=== PATIENT | male | born 1955 | race Caucasian/White ===

== ENCOUNTER 2024-09-17 13:40 | Outpatient (AMB) | payer MEDICARE, SELFPAY ==
--- NOTE | 2024-09-17 13:48 | A.OFFVIS_ITS ---
Vital Signs 09/17/24 13:50 Height 5 ft 11 in Weight 222 lb 10.67 oz BMI 31.1 BP 130/80 Blood Pressure Location Rt brachial Position Sitting Pulse 87 Pulse Source Pulse Oximeter Pulse Oximetry (%) 97 Oxygen Delivery Method Room Air Intake Visit Reasons: T2DM Intake Note: NEW Patient presents today to establish treatment for Type 2 Diabetes Mellitus: Last Diabetic eye exam was on: 03/2024, No Diabetic Retinopathy Last Podiatry exam was on: Patient does not see a Director Sales Training Most recent HbA1c: 6.3%, 08/20/2024 at PCP Random Glucose- 189 mg/dL, Today Set Up Worker Required: No Accompanied by: Self / Same As Patient Allergies No Known Allergies Allergy (Verified 09/17/24 13:54) Medication List - Last Reconciled 09/17/24 by JOANNA Freire atorvastatin 80 mg PO DAILY blood sugar diagnostic (FreeStyle Lite Strips) As directed to check glucose up to 2 times daily. blood-glucose meter (FreeStyle Lite Meter kit) as directed blood-glucose sensor (FreeStyle Peterson 3 Plus Sensor device) As directed to monitor blood glucose continuously. Change sensor every 15 days. glucose (Dex4 Glucose Quick Dissolve) 16 grams (4 x 4 gram) PO Q15M PRN lancets (FreeStyle Lancets) Use to monitor blood glucose twice daily. lisinopril 40 mg PO DAILY metformin ER 1,000 mg PO DAILY HPI Comments Details: This is a 69-year-old male with a past medical history of hypertension, hyperlipidemia nephrolithiasis and type 2 diabetes presenting for a new patient consult for diabetic management. He was diagnosed with prediabetes 15 years ago. This progress to type 2 diabetes. Highest a1c 8.3% last December. Reviewed Peterson 3 data CGM active 97% in the last 14 days Average glucose 133 G OR 6.5% Glucose variability 12.6% 1% hyperglycemia 99% target range The patient has no significant hyperglycemia. Patient reports he has been experiencing alerts to urgent lows from his sensor over the past couple of weeks. Some lows have been in the high 50s. He denies symptoms. He does not have a fingerstick glucometer to confirm this. He reset the sensor alert to less than 85 so now it is going off frequently and he is having orange juice which then causes hyperglycemia. Patient noticed that his weight had increased a bit when he went to his last appointment in primary care a few weeks ago so he decreased the carbohydrates in his diet. Patient went to [facility] on 08/26/2024. Patient says they told him his potassium was high and his kidney function had decreased. He brought lab results. Creatinine was 1.15, potassium 5.5, GFR 69. He was given fluids, and labs were repeated. Potassium normalized to 4, creatinine 1.02 and GFR 80. He was told this was due to dehydration. Hemoglobin a1c 6.3% 08/21/24. Current medications: Metformin ER 500 mg 2 tablets twice daily. He only took 1 tablet this morning, and yesterday he took 2 tablets due to hypoglycemia alerts recently. Previous medication: Jardiance discontinued due to no longer being needed/h ypoglycemia. Follows diabetic diet closely. He does not drink. He does not smoke. Walks 1/4 to 1/5 mile per day due to spinal issues. Previously walked a lot more. Hypoglycemia symptoms: None Hyperglycemia symptoms: None Eye exam: March 2024 Microvascular complications: Mild neuropathy in his feet Macrovascular complications: None Hypertension is treated with lisinopril 40 mg daily. Hyperlipidemia is treated with atorvastatin 80 mg daily. ROS: Constitutional: No unexplained weight loss, fever, chills, fatigue or night sweats. Eyes: No vision changes Respiratory: No shortness of breath Cardiovascular: No chest pain Gastrointestinal: No anorexia, nausea, vomiting or diarrhea. No abdominal pain Genitourinary: No dysuria, hematuria, urinary frequency. Neurologic: No dizziness, syncope, tremors, seizures. Intermittent tingling and burning pain in his toes. No numbness. No weakness. Endocrine: No cold or heat intolerance. No polyuria or polydipsia. Physical exam: Constitutional: Alert, in no distress. Neck: Supple, Full range of motion. No lymphadenopathy. No palpable thyroid masses. Respiratory: Clear to auscultation. Cardiovascular: S1 S2 regular. No murmurs. Right foot: Warm and well perfused. No clubbing, cyanosis or edema. Intact DP pulse. Decreased vibratory sensation. Intact sensation to monofilament. Left foot: Warm and well perfused. No clubbing, cyanosis or edema. Intact DP pulse. Decreased vibratory sensation. Intact sensation to monofilament. [facility] Medical History (Updated 09/17/24 @ 15:25 by JOANNA Freire) Controlled type 2 diabetes with neuropathy Surgical History (Updated 09/17/24 @ 13:57 by SUSANNE Laws) Hx of hemorrhoidectomy Hx of tonsillectomy History of appendectomy Family History (Updated 09/17/24 @ 13:55 by SUSANNE Laws) Father Family history of diabetes mellitus Mother Family history of diabetes mellitus Social History Alcohol intake: current Alcohol intake frequency: does not drink Patient Tobacco Use Status: Never used Tobacco Physical Exam Vital Signs: BMI result Body Mass Index 31.1 Office Procedures Glucose Monitoring Details Details: see [facility] [address] - Glucose monitoring, continuous-physician I&R Procedure code (CPT) selection complete Results Reviewed Results Reviewed: External lab report 08/21/2024: Urine creatinine 76.8 Urine albumin less than 3.0 Albumin/creatinine ratio less than 4 Platelets 247,000 Creatinine 0.88 GFR 94 AST 22 ALT 27 Hemoglobin A1c 6.3% Total cholesterol 100 Triglycerides 86 HDL 47 LDL 36 Vitamin B12 409 Fib 4 value 1.17 09/17/24 Assessment & Plan Assessment & Plan (1) Controlled type 2 diabetes with neuropathy: Code(s): E11.40 - Type 2 diabetes mellitus with diabetic neuropathy, unspecified Category: Medical Plan: In summary this is a 69-year-old male with controlled type 2 diabetes with neuropathy currently on metformin with concerns about fluctuating blood sugars per CGM. Discussed pathophysiology of Type II Diabetes Mellitus with the patient in detail.? 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 Discussed lifestyle modification with the patient. He would like to me with a dietitian. Referral placed. We discussed that CGM sometimes alerts to hypoglycemia inaccurately, and he needs to use a fingerstick glucometer to confirm episodes if he is asymptomatic. He may be having some lows due to decreasing carbohydrates in his diet recently to lose weight. I am going to switch him to the Peterson 3+ for more accuracy. I sent a freestyle glucometer and supplies to his pharmacy as well. Placed Peterson 3+ sensor on the patient, and he left with the jaz in warm up. Reduce Metformin extended release to 1000 mg total daily. If your fasting sugars in the morning are over 145 or if after meals blood sugars are over 180, increase to metformin 1000 mg in the morning and 500 mg at night. If your sensor alerts you to a low blood sugar and you have no symptoms, check a fingerstick. If blood sugar is <70 follow insructions for hypoglycemia below: If you experience low blood sugar, treat this by eating a chewable fruit candy like skittles or jelly beans (about 8 pieces), 4 ounces (1/2 cup) of fruit juice (not diet), 1 tablespoon of honey or 4 glucose tablets. If your blood sugar is under 55, take double the amount of one of the above. Recheck your blood sugar in 15 minutes. Follow up in 2 weeks for re-evaluation of type 2 diabetes. Orders: Orders AMB Glucose Monitoring Today E11.9 - Type 2 diabetes mellitus without complications Referrals Director Of Accounting Nutrition Referral E11.65 - Type 2 diabetes mellitus with hyperglycemia Medications: New blood-glucose meter (FreeStyle Lite Meter kit) as directed 1 ea 0RF E11.9 - Type 2 diabetes mellitus without complications blood-glucose sensor (FreeStyle Peterson 3 Plus Sensor device) As directed to monitor blood glucose continuously. Change sensor every 15 days. 2 ea 11RF lancets (FreeStyle Lancets) Use to monitor blood glucose twice daily. 100 ea 5RF blood sugar diagnostic (FreeStyle Lite Strips) As directed to check glucose up to 2 times daily. 100 ea 5RF glucose (Dex4 Glucose Quick Dissolve) until symptoms of low blood sugar are controlled 16 grams (4 x 4 gram) PO Q15M PRN 10 tabs 3RF hypoglycemia Patient Instructions: Reduce Metformin extended release to 1000 mg total daily. If your fasting sugars in the morning are over 145 or if after meals blood sugars are over 180, increas e to metformin 1000 mg in the morning and 500 mg at night. Switch to peterson plus sensor. If your sensor alerts you to a low blood sugar and you have no symptoms, check a fingerstick. If blood sugar is <70 follow insructions for hypoglycemia below: If you experience low blood sugar, treat this by eating a chewable fruit candy like skittles or jelly beans (about 8 pieces), 4 ounces (1/2 cup) of fruit juice (not diet), 1 tablespoon of honey or 4 glucose tablets. If your blood sugar is under 55, take double the amount of one of the above. Recheck your blood sugar in 15 minutes. Coding Level of Care Code New Pt Level 4 (92888) Diagnoses Controlled type 2 diabetes with neuropathy E11.40 CPT Codes Details - CPT: 02198 - Glucose monitoring, continuous-physician I&R ([id number])
[2024-09-17 13:50] VITALS: BP 130/80; PULSE 87; O2SAT 97; BMI 31.1
[2024-09-17 14:06] LABS: Glucose, Whole Blood 189 mg/dL (60-115)
--- OUTSIDE RECORDS SUMMARY | 2024-09-17 14:58 | XMS_ITS | Clinical Summary ---
Author Organization [facility] Address [address] [place] [address] Care Team Providers Care Egg Separator Name Role Phone Johnson ELAM MD, Balwinder Martin Primary Care Provider [phone] Allergies No known active allergies Medications Medication Sig Dispensed Refills Start Date End Date Status lisinopril (PRINIVIL,ZESTRIL) tablet 20 mg Take 20 mg by mouth daily. 1 05/30/2018 Active metFORMIN (GLUCOPHAGE-XR) ER 24 hr tablet 500 mg Take 500 mg by mouth 2 (two) times a day. 3 07/15/2018 Active pravastatin (PRAVACHOL) tablet 20 mg Take 20 mg by mouth daily. 3 07/15/2018 Active aspirin EC 81 MG tablet Take 81 mg by mouth. 0 Active Active Problems No known active problems Social History Tobacco Use Types Packs/Day Years Used Date Smoking Tobacco: Never Smokeless Tobacco: Never Alcohol Use Standard Drinks/Week Comments No 0 (1 standard drink = 0.6 oz pur e alcohol) Sex and Gender Information Value Date Recorded Sex Assigned at Not on file Gender Identity Not on file Sexual Orientation Not on file Last Filed Vital Signs Vital Sign Reading Time Taken Comments Blood Pressure - - Pulse - - Temperature - - Respiratory Rate - - Oxygen Saturation - - Inhaled Oxygen Concentration - - Weight 108.4 kg (239 lb) 09/10/2018 9:49 AM EDT Height 180.3 cm (5' 11 ) 09/10/2018 9:49 AM EDT Body Mass Index 33.33 09/10/2018 9:49 AM EDT Plan of Treatment Health Maintenance Due Date Last Done Comments Hepatitis C Screening 1955 COVID-19 Vaccine (#1) 1956 Pneumococcal Vaccine (1 of 2 - PCV) 1962 Depression Screening 1968 Preventative Health Evaluation 1974 DTap / Tdap / Td (1 - Tdap) 1975 Colon Cancer Screening (Colonoscopy) 2001 Shingrix-Zoster Vaccine (1 of 2) 2006 Fall Risk Assessment 2021 Influenza Vaccine (#1) 2024 RSV Adult > 60+ Yrs or Pregn ant (1 - 1-dose 75+ series) 2031 Hepatitis B Vaccines Aged Out No long er eligible based on patient's age to complete this topic RSV Ped < 20 months Aged Out No longe r eligible based on patient's age to complete this topic Insurance Payer Benefit Plan / Group Subscriber ID Effective Dates Phone Address [facility] [id number] 2018-Buddy [address] [place] [id number] O Care Teams Egg Separator Relationship Specialty Start Date End Date Balwinder Ornelas II, MD [address] [place] [address] PCP - General Internal Medicine 09/12/17
== END 2024-09-17 14:53 | disposition home or self-care (01) ==
LOC: HO.ENCR 13:40
PROVIDERS: PCP Internal Medicine; Visit Provider Physician Assistant Medical
DX: E11.40 Type 2 diabetes mellitus with diabetic neuropathy, unspecified (principal)

== ENCOUNTER → 2024-09-17 13:40 | Outpatient (BNVA) | payer MEDICARE, SELFPAY | PROVIDERS: PCP Internal Medicine; Visit Provider Physician Assistant Medical | DX: E11.40 Type 2 diabetes mellitus with diabetic neuropathy, unspecified (principal); Z79.84 Long term (current) use of oral hypoglycemic drugs | CPT/HCPCS: 82947; 99202 ==

== ENCOUNTER 2024-10-01 13:20 | Outpatient (AMB) | payer MEDICARE, SELFPAY ==
--- NOTE | 2024-10-01 13:26 | MHC.OFFVIS ---
Vital Signs 10/01/24 13:30 Height 5 ft 11 in Weight 228 lb 9.91 oz BMI 31.9 BP 118/74 Blood Pressure Location Rt brachial Position Sitting Pulse 91 Pulse Source Pulse Oximeter Pulse Oximetry (%) 95 Oxygen Delivery Method Room Air Intake Visit Reasons: T2DM Intake Note: Patient presents today to establish treatment for Type 2 Diabetes Mellitus: Last Diabetic eye exam was on: 03/2024 Last Podiatry exam was on: Patient does not see a Director Digital Catalogue Most recent HbA1c: 6.3%, 08/20/2024 at PCP Random Glucose- 153 mg/dL, Today Vice President Risk Management Required: No Accompanied by: Self / Same As Patient Allergies No Known Allergies Allergy (Verified 10/01/24 13:31) HPI Comments Details: This is a 69-year-old male with a past medical history of hypertension, hyperlipidemia nephrolithiasis and type 2 diabetes presenting for diabetic management. He was diagnosed with prediabetes 15 years ago. This progress to type 2 diabetes. Highest a1c 8.3% last December. Reviewed [employer] Lisa report CGM active 97% Average glucose 144 G WA 6.8% Glucose variability 11% Very high 0% High 2% Target range 98% 0% hypoglycemia Patient's blood sugars are within the target range. Patient reports he has not had anymore episodes of hypoglycemia or alerts to urgent lows on his sensor. Hemoglobin a1c 6.3% 08/21/24. Current medications: Metformin ER 500 mg twice daily reduced from a 1000 mg twice daily. Previous medication: Jardiance discontinued due to no longer being needed/hypoglycemia. Follows diabetic diet closely. He does not drink. He does not smoke. Walks 1/4 to 1/5 mile per day due to spinal issues. Previously walked a lot more. He has a consult with Neurosurgery at [facility] for his back. Hypoglycemia symptoms: None Hyperglycemia symptoms: None Eye exam: March 2024 Microvascular complications: Mild neuropathy in his feet Macrovascular complications: None Hypertension is treated with lisinopril 40 mg daily. Hyperlipidemia is treated with atorvastatin 80 mg daily. ROS: Constitutional: No unexplained weight loss, fever, chills, fatigue or night sweats. Eyes: No vision changes Respiratory: No shortness of breath Cardiovascular: No chest pain Neurologic: No dizziness, syncope, tremors, seizures. Intermittent tingling and burning pain in his toes. No numbness. No weakness. Endocrine: No cold or heat intolerance. No polyuria or polydipsia. Physical exam: Constitutional: Alert, in no distress. Neck: Supple, Full range of motion. No lymphadenopathy. No palpable thyroid masses. Respiratory: Clear to auscultation. Cardiovascular: S1 S2 regular. No murmurs. [facility] Medical History (Updated 09/17/24 @ 15:25 by JOANNA Freire) Controlled type 2 diabetes with neuropathy Surgical History Hx of hemorrhoidectomy Hx of tonsillectomy History of appendectomy Family History Father Family history of diabetes mellitus Mother Family history of diabetes mellitus Social History Alcohol intake: current Alcohol intake frequency: does not drink Patient Tobacco Use Status: Never used Tobacco Physical Exam Vital Signs: Last Vital Signs Pulse 91 10/01/24 13:30 BP 118/74 10/01/24 13:30 Pulse Ox 95 10/01/24 13:30 Oxygen Delivery Method Room Air 10/01/24 13:30 BMI result Body Mass Index 31.9 Office Procedures Glucose Monitoring Details Details: See [facility] [address] - Glucose monitoring, continuous-physician I&R Procedure code (CPT) selection complete Results Reviewed Results Reviewed: External lab report 08/21/2024: Urine creatinine 76.8 Urine albumin less than 3.0 Albumin/creatinine ratio less than 4 Platelets 247,000 Creatinine 0.88 GFR 94 AST 22 ALT 27 Hemoglobin A1c 6.3% Total cholesterol 100 Triglycerides 86 HDL 47 LDL 36 Vitamin B12 409 Fib 4 value 1.17 09/17/24 Assessment & Plan Assessment & Plan (1) Controlled type 2 diabetes with neuropathy: Code(s): E11.40 - Type 2 diabetes mellitus with diabetic neuropathy, unspecified Category: Medical Plan: In summary this is a 69-year-old male with controlled type 2 diabetes with neuropathy currently on metformin with concerns about fluctuating blood sugars per CGM. Discussed pathophysiology of Type II Diabetes Mellitus with the patient in detail.? 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 Discussed lifestyle modifications with the patient. He has an upcoming appointment with the dietitian. He has been following the diabetic diet strictly. We discussed that if he does incorporate some healthy carbohydrate options he may see an increase in his GMI and blood sugar, and if hisG WA is not under 7% he can increase metformin to 1000 mg in the morning and 500 mg in the evening. He plans to continue 500 mg twice daily for now unless he sees this increase. If your sensor alerts you to a low blood sugar and you have no symptoms, check a fingerstick. If blood sugar is <70 follow instructions for hypoglycemia. If you experience low blood sugar, treat this by eating a chewable fruit candy like skittles or jelly beans (about 8 pieces), 4 ounces (1/2 cup) of fruit juice (not diet), 1 tablespoon of honey or 4 glucose tablets. If your blood sugar is under 55, take double the amount of one of the above. Recheck your blood sugar in 15 minutes. Follow up in 2 months for type 2 diabetes. Orders: Orders AMB Glucose Monitoring Today E11.9 - Type 2 diabetes mellitus without complications Coding Level of Care Code Est Pt Level 4 (08762) Diagnoses Controlled type 2 diabetes with neuropathy E11.40 CPT Codes Details - CPT: 20773 - Glucose monitoring, continuous-physician I&R ([id number])
[2024-10-01 13:30] VITALS: BP 118/74; PULSE 91; O2SAT 95; BMI 31.9
[2024-10-01 13:39] LABS: Glucose, Whole Blood 153 mg/dL (60-115)
--- OUTSIDE RECORDS SUMMARY | 2024-10-01 14:28 | XMS_ITS | Clinical Summary ---
Author Organization [facility] Address [address] [place], [place] [id number] Care Team Providers Care Tread Builder Name Role Phone Johnson ELAM MD, Balwinder Martin Primary Care Provider [phone] Allergies No known active allergies Medications Medication [...] Group Subscriber ID Effective Dates Phone Address [facility] [id number] 2018-Buddy [address] [place] [id number] O Care Teams Tread Builder Relationship Specialty Start Date End Date Balwinder Ornelas II, MD [address] [place] [address] PCP - General Internal Medicine 09/12/17
--- OUTSIDE RECORDS SUMMARY | 2024-10-01 14:28 | XMS_ITS | Data Portability ---
Author Organization [place] - [facility], Allergy Address [address] [place] [phone] Care Team Providers Care Redevelopment Specialist Name Role Phone TYLER NGUYEN Primary Care Provider Assessment Encounter Date Assessment Date Assessment LastModified by Organization Details LastModified Time 12/06/2023 12/06/2023 Impacted cerumen was debrided bilaterally today. He will follow up in three months. [email or web address] Not available 12/06/2023 09:13:22 04/05/2024 04/05/2024 69 year old male presents for ear cleaning. Ears were meticulously cleaned bilaterally today with fine pics and suction. Patient is encouraged to avoid Q-tips in his ears relative to packing the wax in tighter. He will follow up in 3 months. He requests to follow up in early June when [place] [email or web address] Not available 04/05/2024 11:55:06 06/21/2024 06/21/2024 69 year old male presents for ear cleaning. Ears were meticulously cleaned bilaterally today with fine pics and suction. Patient is encouraged to avoid Q-tips in his ears relative to packing the wax in tighter. He will follow up in 3 months when he returns from [place], [place] for the season. Not available 06/21/2024 08:15:24 09/20/2024 09/20/2024 Bilateral cerumen impactions were debrided using suction. TMs intact and middle ear spaces appear well aerated. His voice is of normal quality this morning. I have recommended an oral antihistamine such as Zyrtec, Claritin, or Estrella daily. He will follow up in 3 months for ear cleaning. If he continues to have voice concerns at that time he may benefit from fiberoptic laryngoscopy. Not available 09/20/2024 08:37:38 Plan of Treatment Reminders Order Date Submit Date Provider Last Modified By Organization Details Last Modified Time Details Appointments Establish ed 15 2024 02:00P M NOAH WASHINGTON PA-C Not available Not available Not available Lab None recorded. Referral None recorded. Procedures None recorded. Surgeries None recorded. Imaging None recorded. Medication Orders None recorded. Patient TargetsNo targets recorded. Patient InstructionsNo instructions recorded. Reason for Referral None Reported. Results Created Date Observation Date Name Description Value Unit Range Abnormal Flag Note LastModifiedBy Organization Detail LastModifiedTime 01/04/20 24 05/24/2019 imagi ng/di kendalos tic resul t No observ ation record ed. [email or web address] Not Available 19:35:24 Result Notes None recorded. Problems Name Problem SNOMED Code Status Onset Date Resolution Date Notes Provider Name and Address Organization Details Recorded Time Abnormal auditory perceptio n 72533796 Active 2019 Other abnormal auditory perceptio ns, right ear; Note: Changed from H93.293 to H93.291 ( 0 1:01 PM) , Date Diagnosed : 05/27/2019 1:00 PM (H93.293) Not Available [facility] 4 02:51:52 Impacted cerumen of bilateral ears 95709216612 18014 Active 2019 Impacted cerumen, bilateral ; Note: Date Diagnosed : 09/23/2019 1:57 PM (H61.23) Not Available [facility] 4 02:51:53 Pain of right temporoma ndibular joint 41822660040 699736 Active 2019 Arthralgi a of right temporoma ndibular joint; Note: Changed from M26.62 to M26.621 ( 0 12:59 PM) , Date Diagnosed : 05/24/2019 4:08 PM (M26.62) Not Available [facility] 4 02:51:54 Hoarse 36549678 Active 2024 FREEMAN ORTIZ PA-C [address] [place] [address], [place], [phone] , [facility] - [facility] 5 08:36:57 Problem Notes None recorded. Procedures Surgical History Date Name Laterality Status Provider Name and Address Organization Details Recorded Time 5 Cerumen removal without microscope bilat completed FREEMAN ORTIZ PA-C [address] [facility],[place] [address], [place], [address], [place] - [facility] 09/20/2024 08:35:34 5 Cerumen removal without microscope bilat completed FREEMAN ORTIZ PA-C [address] [facility],[address], [place], [address], [place] - [facility] 06/21/2024 08:14:49 4 Cerumen removal without microscope bilat completed FREEMAN ORTIZ PA-C [address] [facility],[place] [address], [place], [address], [facility] - [facility] 04/05/2024 11:38:50 Imaging Results Imaging Date Name Status LastModified by [employer] [facility] Details LastModified Time 05/24/2019 imaging/diag nostic result completed [email or web address] Information not available 01/04/2024 19:35:24 Procedure Notes None recorded. Medical Equipment None Reported. Allergies No known drug allergies Medications Name Sig Start Date Stop Date Status Note LastModified by Organization Details LastModified Time atorvasta tin 80 mg tablet TAKE 1 TABLET BY MOUTH EVERY DAY FOR 90 DAYS active Not Available Not Available No t Available prednison e 10 mg tablet Take 4 tablet by mouth once a day 03/06 completed Medicati on ID: [id number] D uration Value: 5 Brand Name: predniso ne Send Method: E-Prescr ibed Sub s Allowed: subs OK Medic ationGen ericName : predniso ne Not Available Not Available Not Available meloxicam 15 mg tablet TAKE 1 TABLET BY MOUTH EVERY DAY 09/20 completed Not Available Not Available Not Available FreeStyle Lancets 28 gauge 08/25 completed Medicati on ID: [id number] B rand Name: FreeStyl e Lancets Send Method: E-Prescr ibed Sub s Allowed: subs OK Medic ationGen ericName : FreeStyl e Lancets Not Available Not Available Not Available lisinopri l 20 mg tablet TAKE 1 TABLET BY MOUTH EVERY DAY FOR 30 DAYS active Not Available Not Available No t Available tamsulosi n 0.4 mg capsule 08/25 completed Medicati on ID: [id number] B rand Name: tamsulos in Send Method: E-Prescr ibed Sub s Allowed: subs OK Medic ationGen ericName : tamsulos in Not Available Not Available Not Available gabapenti n 300 mg capsule TAKE 1-2 CAPSULE BY MOUTH THREE TIMES A DAY 06/21 completed Not Available Not Available Not Available pravastat in 20 mg tablet 03/06 completed Medicati on ID: [id number] D uration Value: 90 Brand Name: pravasta tin Send Method: E-Prescr ibed Sub s Allowed: subs OK Speci al Instruct ion: TAKE 1 TABLET BY MOUTH EVERY DAY Medi cationGe nericNam e: pravasta tin Not Available Not Available Not Available gabapenti n 100 mg capsule 06/21 completed Medicati on ID: [id number] B rand Name: gabapent in Send Method: E-Prescr ibed Sub s Allowed: subs OK Medic ationGen ericName : gabapent in Not Available Not Available Not Available metformin ER 500 mg tablet,ex tended release 24 hr 1 TABLET WITH EVENING MEAL ORALLY 4 TIMES DAILY 90 DAYS active Not Available Not Available No t Available tobramyci n 0.3 %-dexamet hasone 0.1 % eye drops,juana pension PLACE ONE DROP IN THE LEFT EYE THREE TIMES A DAY FOR FIVE DAYS THEN STOP 06/21 completed Not Available Not Available Not Available Kami Aspirin 06/21 completed Medicati on ID: [id number] B rand Name: kami aspirin Send Method: E-Prescr ibed Sub s Allowed: subs OK Medic ationGen ericName : kami aspirin Not Available Not Available Not Available FreeStyle Lite Meter kit 2020 active Medicati on ID: [id number] B rand Name: FreeStyl e Lite Meter Se nd Method: E-Prescr ibed Sub s Allowed: subs OK Speci al Instruct ion: CHECK BLOOD SUGARS ONCE A DAY DX DM TYPE2 E11.9 Me dication GenericN sam: FreeStyl e Lite Meter Not Available Not Available Not Available FreeStyle Lite Strips 08/25 completed Medicati on ID: [id number] B rand Name: FreeStyl e Lite Strips S end Method: E-Prescr ibed Sub s Allowed: subs OK Speci al Instruct ion: CHECK BLOOD SUGARS ONCE A DAY DX DM TYPE2 E11.9 Me dication GenericN sam: FreeStyl e Lite Strips Not Available Not Available Not Available Jardiance 10 mg tablet TAKE 1 TABLET BY MOUTH EVERY DAY 09/20 completed Not Available Not Available Not Available Sutab 1.479-0.1 88-0.225 gram tablet PLEASE SEE ATTACHED FOR DETAILED DIRECTIO NS 06/21 completed Not Available Not Available Not Available FreeStyle Lisa 3 [place] active Not Available Not Available Not Available FreeStyle Lisa 3 Plus Sensor device DIRECTED CHANGE EVERY 14 DAYS 28 active Not Available Not Available No t Available Vitals Date Recorded Body height Body mass index (BMI) Body weight Provider Name and Address Organization Details Last Updated DateTime 09/20/2024 180.34 cm 30.7 kg/m2 69139.32 g Shae Jameson [place] - [facility] 09/20/2024 08:06:42 Date Recorded Body height Body mass index (BMI) Body weight Provider Name and Address Organization Details Last Updated DateTime 12/06/2023 180.34 cm 32.8 kg/m2 092390.21 g Josefina Lema [place] - [facility] 12/06/2023 09:07:55 Date Recorded Body height Body mass index (BMI) Body weight Provider Name and Address Organization Details Last Updated DateTime 04/05/2024 180.34 cm 32.8 kg/m2 932786.21 g Shae Jameson [facility] 04/05/2024 11:26:23 Date Recorded Body height Body mass index (BMI) Body weight Provider Name and Address Organization Details Last Updated DateTime 06/21/2024 180.34 cm 30.7 kg/m2 93562.32 g Christine Mccrary [place] - [facility] 06/21/2024 07:56:01 Social History None recorded. Functional Status None recorded. Mental Status None recorded. Family History Nothing Reported. Medical History No medical history recorded. Past Encounters Encounter ID Performer Location Encounter Start Date Encounter Closed Date Diagnosis/Indication Diagnosis SNOMED-CT Code Diagnosis ICD10 Code Diagnosis Note [id number] MARY KRISHNAN PA-C [facility] [address] [place] [address], [place] [address] 12/06/2023 08:56:13 12/06/2023 09:17:11 Impacted cerumen of bilateral ears 3157575179 599349 H61.23 [id number] FREEMAN ORTIZ PA-C [facility] [address] [place] [address], [place] [address] 04/05/2024 11:18:09 04/05/2024 11:38:18 Impacted cerumen of bilateral ears 5348430531 738309 H61.23 [id number] FREEMAN ORTIZ PA-C [facility] [address] [place] [address], [place] [address] 06/21/2024 07:46:34 06/21/2024 08:14:12 Impacted cerumen of bilateral ears 6017436950 584649 H61.23 [id number] FREEMAN ORTIZ PA-C [facility] [address] [place] [address], [place] [address] 09/20/2024 07:59:07 09/20/2024 08:36:39 Impacted cerumen of bilateral ears 0810429679 647496 H61.23 Hoarse 00213644 R49.0 Health Concerns Section Related Observation LastModified by Organization Detai ls LastModified Time None Recorded Concern Status LastModified by Organization Details LastModified Time None Recorded Advance Directives Directive None Recorded Payers Insurance Date Sequence Insurance Name Policy Number Policy Galvez Covered Member ID Galvez Member ID Guarantor Name 09/20/2024 1 [facility]: MEDICARE PPO BLUE (MEDICARE REPLACEMENT PPO) [id number] Darrick Gil [id number] Darrick Gil Notes Date Note Type Note Provider Name and Address Organization Details Recorded Time 12/06/2023 text/html 68 year old male presents today for cerumen removal.No concerns today. Mary franks [place] - [facility] 12/06/2023 09:13:40 04/05/2024 text/html 69 year old male presents for ear cleaning. No concerns. KEYA COLBERT MD [address], [address], [facility] 04/08/2024 08:27:13 06/21/2024 text/html 69 year old male presents for ear cleaning. No concerns. KEYA COLBERT MD [address], [address], [facility] 06/21/2024 09:10:42 09/20/2024 text/html 69 year old male presents to the office for routine 3 month ear cleaning. No ear concerns. He does note he has been losing his voice over the past couple of weeks. No recent upper respiratory infection. He attributes it to seasonal allergies. He is not currently taking any oral antihistamine. He is a nonsmoker. KEYA COLBERT MD [address], [address], [facility] 09/20/2024 13:00:42
== END 2024-10-01 14:35 | disposition home or self-care (01) ==
LOC: HO.ENCR 13:21
PROVIDERS: PCP Internal Medicine; Visit Provider Physician Assistant Medical
DX: E11.40 Type 2 diabetes mellitus with diabetic neuropathy, unspecified (principal)

== ENCOUNTER → 2024-10-01 13:20 | Outpatient (BNVA) | payer MEDICARE, SELFPAY | PROVIDERS: PCP Internal Medicine; Visit Provider Physician Assistant Medical | DX: E11.40 Type 2 diabetes mellitus with diabetic neuropathy, unspecified (principal); Z79.84 Long term (current) use of oral hypoglycemic drugs | CPT/HCPCS: 82947; 99212 ==

== ENCOUNTER 2024-10-29 09:17 | Outpatient (AMB) | payer BC, SELFPAY ==
--- NOTE | 2024-10-29 09:28 | A.OFFVIS_ITS ---
VS Expanded 10/29/24 09:29 10/29/24 09:35 10/29/24 09:46 Height 5 ft 11 in 5 ft 11 in 5 ft 11 in Weight 225 lb 12.054 oz 226 lb 226 lb BMI 31.5 31.5 31.5 Intake Visit Reasons: T2DM Allergies No Known Allergies Allergy (Verified 10/01/24 13:31) Nutrition Presentation Details: Pt presents for MNT for T2DM Pt reports tis is his current meal pattern, working on reducing bread B: 2 eggs and water , vitamin zero L: salad with olive oil , no protein /no dairy /no fruits water or vitamin zero Dinner: 4-6 oz meatloaf with vegetables and green beans, water snack :baked potato chips may need spinal surgery Pt reports gradually working on weight loss, reports he was 360 lbs in 1999 , and was 280 lbs 2 yrs ago food frequency fruits: 1/d ve/d diary: 0-2/d starches 20 /d fish: 0/wk beverages: vitamin water , water, low sugar beverages PA: limited/sedentary, reports may need back surgery etoh/smoking: -- YPL-Jobknzr-Sw.Jeor Equation Height: 5 ft 11 in Weight: 226 lb Resting Metabolic Rate: 1821.66 Calculated Activity Level: Sedentary Calories Needed to Maintain Weight: 2185.99 Diagnosis Nutrition problem #1: overweight/obesity and food nutri know defi As related to (etiology) #1: diagnosis As evidenced by (sign/symptom) #1: food recall (meal balance:protein/veg/fruit) Monitoring/Goals Nutrition problem monitoring: weight (prot/fruit/veg /whole grain- healthy plate method) Outcome progress: verbalized understanding Learning/Education Readiness to learn: good [facility] Medical History (Updated 09/17/24 @ 15:25 by JOANNA Freire) Controlled type 2 diabetes with neuropathy Surgical History Hx of hemorrhoidectomy Hx of tonsillectomy History of appendectomy Family History Father Family history of diabetes mellitus Mother Family history of diabetes mellitus Social History Alcohol intake: current Alcohol intake frequency: does not drink Patient Tobacco Use Status: Never used Tobacco Assessment & Plan Assessment & Plan (1) Controlled type 2 diabetes with neuropathy: Code(s): E11.40 - Type 2 diabetes mellitus with diabetic neuropathy, unspecified Category: Medical Plan: Wt: 103 Kg ( 11/06 ) Est kcal needs as per MSJ: 2200 (40% carb, 30% protein/fat) Est fluid needs as per 25-30 ml/d: 3100 Est prot per day as per 1 g/kg bw: 100 Recommend fiber intake : 8-10 g per day and gradually increase to 25-28 g per day for women and 35-38 g for men or as tolerated Recommend sodium intake per day : less than 2300 mg Educated patient on: ( R = reviewed V = verbalizes understanding N/R = needs review N/A = not applicable * Food sources of carbohydrate, adequate serving sizes and its role in various health conditions: R V N/R * Differences between complex carbohydrates a simple carbohydrates, role of fiber in diet: R * Lean protein sources of foods: R V * Differences between types of fats and role in diet (mono on saturated fat fatty acids, saturated fatty acids, trans fats): R V N/R * Food sources of sodium in salt and healthy modifications for heart health in kidney health: R V R/V * Vitamins and minerals: R V N/R * Healthy plate method concept: R * Physical activity: Benefits a precaution: R V N/R Patient Instructions: Work on balancing meals while reducing total calories (from fats/highly processed foods/empty calories) add a fruit at breakfast in place of bread with eggs and turkey sausage Add at least 4 oz of protein to your salad at lunch (choose eggs or fish or poultry) Coding Level of Care Code Nutr Indiv Intake (54392) Diagnoses Controlled type 2 diabetes with neuropathy E11.40 Time Spent (min) 30
[2024-10-29 09:29] VITALS: BMI 31.5
[2024-10-29 09:46] VITALS: BMI 31.5
--- OUTSIDE RECORDS SUMMARY | 2024-10-29 09:57 | XMS_ITS | Data Portability ---
Author Organization [place] - [facility], Allergy Address [address] [place] [id number] Care Team Providers Care Electro Optical Engineer Name Role Phone TYLER NGUYEN Primary Care [...] in 3 months when he returns from [place], [place] for the season. Not available 06/21/2024 [...] Details Recorded Time Abnormal auditory perceptio n [id number] Active 2019 Other abnormal auditory perceptio ns, right ear; Note: Changed from H93.293 to H93.291 ( 0 1:01 PM) , Date Diagnosed : 05/27/2019 1:00 PM (H93.293) Not Available [facility] 4 02:51:52 Impacted cerumen of bilateral ears 91352251800 51909 Active 2019 Impacted cerumen, bilateral ; Note: Date Diagnosed : 09/23/2019 1:57 PM (H61.23) Not Available [facility] 4 02:51:53 Pain of right temporoma ndibular joint 93993664995 926281 Active 2019 Arthralgi a of right temporoma ndibular joint; Note: Changed from M26.62 to M26.621 ( 0 12:59 PM) , Date Diagnosed : 05/24/2019 4:08 PM (M26.62) Not Available [facility] 4 02:51:54 Hoarse 93466135 Active 2024 FREEMAN ORTIZ PA-C [address] [place] [address], [place], [address] , [facility] - [facility] 5 08:36:57 Problem Notes None recorded. Procedures Surgical History Date Name Laterality Status Provider Name and Address Organization Details Recorded Time 5 Cerumen removal without microscope bilat completed FREEMAN ORTIZ PA-C [address] [place] [facility], [place], [address], [place] - [facility] 09/20/2024 08:35:34 5 Cerumen removal without microscope bilat completed FREEMAN ORTIZ PA-C [address] [facility],[address], [place], [address], [place] - [facility] 06/21/2024 08:14:49 4 Cerumen removal without microscope bilat completed FREEMAN ORTIZ PA-C [address] [facility],[place] [address], [place], [address], [facility] - [facility] 04/05/2024 11:38:50 Imaging Results None recorded. Procedure Notes None recorded. Medical Equipment None [...] a day 03/06 completed Medicati on ID: [id number] D uration Value: 5 Brand Name: predniso ne Send Method: E-Prescr ibed Sub s Allowed: subs OK Medic ationGen ericName : predniso ne Not Available Not Available Not Available meloxicam 15 mg tablet TAKE 1 TABLET BY MOUTH EVERY DAY 09/20 completed Not Available Not Available Not Available FreeStyle Lancets 28 gauge 08/25 completed Medicati on ID: [id number] B rand Name: FreeStyl e Lancets Send Method: E-Prescr ibed Sub s Allowed: subs OK Medic ationGen ericName : FreeStyl e Lancets Not Available Not Available Not Available lisinopri l 20 mg tablet TAKE 1 TABLET BY MOUTH EVERY DAY FOR 30 DAYS active Not Available Not Available No t Available tamsulosi n 0.4 mg capsule 08/25 completed Medicati on ID: [id number] B rand Name: tamsulos in Send Method: E-Prescr ibed Sub s Allowed: subs OK Medic ationGen ericName : tamsulos in Not Available Not Available Not Available gabapenti n 300 mg capsule TAKE 1-2 CAPSULE BY MOUTH THREE TIMES A DAY 06/21 completed Not Available Not Available Not Available pravastat in 20 mg tablet 03/06 completed Medicati on ID: [id number] D uration Value: 90 Brand Name: pravasta tin Send Method: E-Prescr ibed Sub s Allowed: subs OK Speci al Instruct ion: TAKE 1 TABLET BY MOUTH EVERY DAY Medi cationGe nericNam e: pravasta tin Not Available Not Available Not Available gabapenti n 100 mg capsule 06/21 completed Medicati on ID: [id number] B rand Name: gabapent in Send Method: [...] Kami Aspirin 06/21 completed Medicati on ID: [id number] B rand Name: kami aspirin Send Method: E-Prescr ibed Sub s Allowed: subs OK Medic ationGen ericName : kami aspirin Not Available Not Available Not Available FreeStyle Lite Meter kit 2020 active Medicati on ID: [id number] B rand Name: FreeStyl e Lite Meter Se nd Method: E-Prescr ibed Sub s Allowed: subs OK Speci al Instruct ion: CHECK BLOOD SUGARS ONCE A DAY DX DM TYPE2 E11.9 Me dication GenericN sam: FreeStyl e Lite Meter Not Available Not Available Not Available FreeStyle Lite Strips 08/25 completed Medicati on ID: [id number] B rand Name: FreeStyl e Lite Strips [...] Not Available Not Available FreeStyle Lisa 3 [place] active Not Available Not Available Not Available FreeStyle Lisa 3 Plus Sensor device DIRECTED CHANGE EVERY 14 DAYS 28 active Not Available Not Available No t Available Vitals Date Recorded Body height Body mass index (BMI) Body weight Provider Name and Address Organization Details Last Updated DateTime 06/21/2024 180.34 cm 30.7 kg/m2 13453.32 g Christine Mccrary [place] - [facility] 06/21/2024 07:56:01 Date Recorded Body height Body mass index (BMI) Body weight Provider Name and Address Organization Details Last Updated DateTime 09/20/2024 180.34 cm 30.7 kg/m2 78228.32 g Shae Jameson [place] - [facility] 09/20/2024 08:06:42 Date Recorded Body height Body mass index (BMI) Body weight Provider Name and Address Organization Details Last Updated DateTime 12/06/2023 180.34 cm 32.8 kg/m2 532475.21 g Josefina Lema [place] - [facility] 12/06/2023 09:07:55 Date Recorded Body height Body mass index (BMI) Body weight Provider Name and Address Organization Details Last Updated DateTime 04/05/2024 180.34 cm 32.8 kg/m2 491547.21 g Shae Jameson [place] - [facility] 04/05/2024 11:26:23 Social History None recorded. Functional Status None recorded. Mental Status None recorded. Family History Nothing Reported. Medical History No medical history recorded. Past Encounters Encounter ID Performer Location Encounter Start Date Encounter Closed Date Diagnosis/Indication Diagnosis SNOMED-CT Code Diagnosis ICD10 Code Diagnosis Note [id number] MARY KRISHNAN PA-C [facility] on [address] [place] [address] [place] [address] 12/06/2023 08:56:13 12/06/2023 09:17:11 Impacted cerumen of bilateral ears [id number] 769718 H61.23 [id number] FREEMAN ORTIZ PA-C [facility] on [address] [place] [address] [place] [address] 04/05/2024 11:18:09 04/05/2024 11:38:18 Impacted cerumen of bilateral ears 1060298134 275540 H61.23 [id number] FREEMAN ORTIZ PA-C [facility] on [address] [place] [address] [place] [address] 06/21/2024 07:46:34 06/21/2024 08:14:12 Impacted cerumen of bilateral ears 2722465574 196147 H61.23 [id number] FREEMAN ORTIZ PA-C [facility] on [address] [place] [address] [place] [address] 09/20/2024 07:59:07 09/20/2024 08:36:39 Impacted cerumen of bilateral ears 6077235512 921537 H61.23 Hoarse 66581335 R49.0 Health Concerns Section Related Observation LastModified by Organization Detai ls LastModified Time None Recorded Concern Status LastModified by Organization Details LastModified Time None Recorded Advance Directives Directive None Recorded Payers Insurance Date Sequence Insurance Name Policy Number Policy Galvez Covered Member ID Galvez Member ID Guarantor Name 09/20/2024 1 [facility]IC[place] P[place] BLUE (MEDICARE REPLACEMENT PPO) [id number] Darrick Gil [id number] Darrick Gil Notes Date Note Type Note Provider Name and Address Organization Details Recorded Time 12/06/2023 text/html 68 year old male presents today for cerumen removal.No concerns today. Mary franks [place] - [facility] 12/06/2023 09:13:40 04/05/2024 text/html 69 year old male presents for ear cleaning. No concerns. KEYA COLBERT MD [address] [place] [address], [place], [address], [place] - [facility] [place] 04/08/2024 08:27:13 06/21/2024 text/html 69 year old male presents for ear cleaning. No concerns. KEYA COLBERT MD [address] [place] [address], [phone], [facility] - [facility] 06/21/2024 09:10:42 09/20/2024 text/html 69 year old male presents to the office for routine 3 month ear cleaning. No ear concerns. He does note he has been losing his voice over the past couple of weeks. No recent upper respiratory infection. He attributes it to seasonal allergies. He is not currently taking any oral antihistamine. He is a nonsmoker. KEYA COLBERT MD [address] [place] [address], [phone], [facility] - [facility] 09/20/2024 13:00:42
[2024-11-11 11:56] VITALS: BMI 31.5
== END 2024-10-29 10:02 | disposition home or self-care (01) ==
LOC: HO.ENCR 09:18
PROVIDERS: PCP Internal Medicine; Visit Provider Dietitian, Registered
DX: E11.40 Type 2 diabetes mellitus with diabetic neuropathy, unspecified (principal)

== ENCOUNTER → 2024-10-29 09:17 | Outpatient (BNVA) | payer MEDICARE, SELFPAY | PROVIDERS: PCP Internal Medicine; Visit Provider Dietitian, Registered | DX: E11.40 Type 2 diabetes mellitus with diabetic neuropathy, unspecified (principal) | CPT/HCPCS: 97802 ==

== ENCOUNTER 2024-12-03 10:19 | Outpatient (AMB) | payer MEDICARE, SELFPAY ==
--- OUTSIDE RECORDS SUMMARY | 2024-11-18 06:06 | XMS_ITS ---
Author Organization [facility] Address [address] [place] [id number] Care Team Providers Care Literacy Coordinator Name Role Phone RADHA NGUYEN Primary Care Provider [phone] REASON FOR VISIT Update Kiosk Demographics Encounters Encounter Location Date Provider Diagnosis [facility] [address] [place] [address] 11/18/2024 RADHA NGUYEN PLAN OF TREATMENT Next Appt Details Provider Name:RADHA NGUYEN, 04/28/2025 10:00:00 AM, [address] [place], [address],
--- NOTE | 2024-12-03 10:21 | MHC.OFFVIS ---
Vital Signs 12/03/24 10:23 Height 5 ft 11 in Weight 227 lb 8.273 oz BMI 31.7 BP 106/68 Blood Pressure Location Rt brachial Position Sitting Pulse 81 Pulse Source Pulse Oximeter Pulse Oximetry (%) 96 Oxygen Delivery Method Room Air Intake Visit Reasons: Type II diabetes Intake Note: Patient present today to follow up on Type 2 Diabetes Mellitus. Last Diabetic Eye exam: 03/2024 Last Podiatry Visit: Does not see a Emt B Random Glucose: 133 mg/dl HgA1C: 6.2% 12/03/2024 Specialty Development Consultant Required: No Accompanied by: Self / Same As Patient Allergies No Known Allergies Allergy (Verified 12/03/24 10:26) Medication List - Last Reconciled 12/03/24 by JOANNA Freire atorvastatin 80 mg PO DAILY blood sugar diagnostic (FreeStyle Lite Strips) As directed to check glucose up to 2 times daily. blood-glucose meter (FreeStyle Lite Meter kit) as directed blood-glucose sensor (ZivityStyle Lisa 3 Plus Sensor device) As directed to monitor blood glucose continuously. Change sensor every 15 days. glucose (Dex4 Glucose Quick Dissolve) 16 grams (4 x 4 gram) PO Q15M PRN lancets (FreeStyle Lancets) Use to monitor blood glucose twice daily. lisinopril 40 mg PO DAILY metformin ER Take 1000 mg in the morning and 500 mg in the evening. HPI Comments Details: This is a 69-year-old male with a past medical history of hypertension, hyperlipidemia nephrolithiasis, degenerative disc disease of the lumbar spine and type 2 diabetes presenting for diabetic management. He was diagnosed with prediabetes 15 years ago which progress to type 2 diabetes. Highest a1c 8.3% December 2023. Reviewed Lisa 3 download CGM active 96% G AL 6.3% Glucose variability 10.7% 100% of blood sugars are within target range. Hemoglobin a1c 6.2% today. Current medications: Metformin ER 1000 mg in the morning and 500 mg at daily. Previous medication: Jardiance discontinued due to previous hypoglycemia. He sees the dietitian. He is following a low carbohydrate, low sugar diet. He does not drink. He does not smoke. He has not been able to walk or exercise due to his back issues. He had a neurosurgery consult at [facility] recently. He wants to put off surgery at this time. Hypoglycemia symptoms: None. The CGM alerts him at night to low blood sugar once or twice per month, but he does not do a fingerstick to confirm. Patient says when he gets up and changes position the CGM is normal. This happened the other week. CGM alerted to a blood sugar of 69, but when he went to the kitchen before eating anything the blood sugar was 128. Hyperglycemia symptoms: None Eye exam: Up-to-date. No ophthalmic complications. Microvascular complications: Mild neuropathy in his feet Macrovascular complications: None Hypertension is treated with lisinopril 40 mg daily. Hyperlipidemia is treated with atorvastatin 80 mg daily. Patient reports he had cholesterol checked with his PCP last week, and the LDL was 35. Patient is concerned because he has a high lipoprotein a level and a family history of cardiovascular disease. He is on atorvastatin. ROS: Constitutional: No unexplained weight loss, fever, chills, fatigue or night sweats. Eyes: No vision changes Respiratory: No shortness of breath Cardiovascular: No chest pain Neurologic: No dizziness, syncope, tremors, seizures. Intermittent tingling and burning pain in his toes. No numbness. No weakness. Endocrine: No cold or heat intolerance. No polyuria or polydipsia. Physical exam: Constitutional: Alert, in no distress. Neck: Supple, Full range of motion. No lymphadenopathy. No palpable thyroid masses. Respiratory: Clear to auscultation. Cardiovascular: S1 S2 regular. No murmurs. REPLACED BY [facility] Medical History (Updated 12/03/24 @ 11:05 by JOANNA Freire) Essential hypertension Hypercholesteremia Controlled type 2 diabetes with neuropathy Surgical History Hx of hemorrhoidectomy Hx of tonsillectomy History of appendectomy Family History Father Family history of diabetes mellitus Mother Family history of diabetes mellitus Social History Alcohol intake: current Alcohol intake frequency: does not drink Patient Tobacco Use Status: Never used Tobacco Physical Exam Vital Signs: Last Vital Signs Pulse 81 12/03/24 10:23 BP 106/68 12/03/24 10:23 Pulse Ox 96 12/03/24 10:23 Oxygen Delivery Method Room Air 12/03/24 10:23 BMI result Body Mass Index 31.7 Office Procedures Glucose Monitoring Details Details: See HPI 89694 - Glucose monitoring, continuous-physician I&R Procedure code (CPT) selection complete Results AMB Hemoglobin A1c AMB Hemoglobin A1c 6.2 % Last Edit by SUSANNE Lamb on 12/03/24 10:40 Results Reviewed Results Reviewed: Laboratory Last Values Glucose (Clinic) 133 mg/dL (60-115) H 12/03/24 10:30 Hgb A1c (Clinic) 6.2 % (4.0-6.0) H 12/03/24 10:33 External lab report 08/21/2024: Urine creatinine 76.8 Urine albumin less than 3.0 Albumin/creatinine ratio less than 4 Platelets 247,000 Creatinine 0.88 GFR 94 AST 22 ALT 27 Hemoglobin A1c 6.3% Total cholesterol 100 Triglycerides 86 HDL 47 LDL 36 Vitamin B12 409 Fib 4 value 1.17 09/17/24 Assessment & Plan Assessment & Plan (1) Controlled type 2 diabetes with neuropathy: Code(s): E11.40 - Type 2 diabetes mellitus with diabetic neuropathy, unspecified Category: Medical Plan: In summary this is a 69-year-old male with controlled type 2 diabetes with neuropathy currently on metformin. Discussed pathophysiology of Type II Diabetes Mellitus with the patient in detail.? I explained the fpc risks and complications associated with uncontrolled diabetes including nephropathy, neuropathy, peripheral vascular disease, retinopathy, increased risk of heart disease and stroke.? We discussed reducing metformin and restarting Jardiance 10 mg or GLP 1. He declines GLP 1. He is interested in restarting Jardiance for potential cardiovascular protection. Today he elected not to make any medication changes because he may be having surgery. He will message me via the portal if he wants to start Jardiance and reduce the metformin to 500 mg once daily. I would also repeat creatinine 10-14 days after restarting Jardiance. We reviewed potential side effects including genitourinary infections and ISMAEL. I urged the patient to check a fingerstick glucose if the CGM alerts him to low blood sugar, and he has no symptoms. If blood sugar is <70 follow instructions for hypoglycemia: If you experience low blood sugar, treat this by eating a chewable fruit candy like skittles or jelly beans (about 8 pieces), 4 ounces (1/2 cup) of fruit juice (not diet), 1 tablespoon of honey or 4 glucose tablets. If your blood sugar is under 55, take double the amount of one of the above. Recheck your blood sugar in 15 minutes. Follow up in 3 months for type 2 diabetes. Orders: Orders AMB Hemoglobin A1c Today E11.40 - Type 2 diabetes mellitus with diabetic neuropathy, unspecified AMB Glucose Monitoring Today E11.9 - Type 2 diabetes mellitus without complications Coding Level of Care Code Est Pt Level 4 (90321) Diagnoses Controlled type 2 diabetes with neuropathy E11.40 CPT Codes Details - CPT: 69091 - Glucose monitoring, continuous-physician I&R ([id number])
[2024-12-03 10:23] VITALS: BP 106/68; PULSE 81; O2SAT 96; BMI 31.7
[2024-12-03 10:34] LABS: Glucose, Whole Blood 133 mg/dL (60-115)
--- OUTSIDE RECORDS SUMMARY | 2024-12-03 11:26 | XMS_ITS | Patient Health Record ---
Author Organization [facility] Bridget Moraley Address [address] [place] [address] Care Team Providers Care Machining Technician Name Role Phone Balwinder Ornelas MD Primary Care Provider Unavailab Gregory Mary Unavailable [phone] Reason For Referral No Information Medications Medication SIG (Take, Route, Frequency, Duration) Notes Start Date End Date Status Aspirin 81 MG 1 tablet Orally Once a day 6 Active Pravastatin Sodium 20 MG TAKE 1 TABLET B Y MOUTH EVERY DAY FOR 30 DAYS Oral; Duration: 30 Active metFORMIN HCl ER 500 MG TAKE 2 TABLETS B Y MOUTH 2 TIMES A DAY Oral; Duration: 30 Active Lisinopril 20 MG TAKE 1 TABLET BY TH EVERY DAY Oral; Duration: 90 Active Social History Tobacco Use: Social History Observation Description Date Details (start date - stop date) Never Smoker NA - NA Tobacco Use/Smoking Question Answer Notes Are you a: nonsmoker Additional Findings: Tobacco Non-User Current no n-smoker Alcohol Screen Question Answer Notes Did you have a drink containing alcohol in the p ast year? No Points 0 Interpretation Negative Tobacco use other than smoking: Question Answer Notes Are you an other tobacco user? No Problems Problem Type SNOMED Code ICD Code Onset Dates Problem Status W/U Status Risk Notes Problem Localized, primary osteoarthritis of the ankle and/or foot (504957194) Primary osteoarthritis, right ankle and foot (M19.071) Active confirmed Problem Polyneuropathy due t o type 2 diabetes mellitus (112680471) Type 2 diabetes mellitus with diabetic polyneuropathy (E11.42) Active confirmed Problem Swelling of first metatarsophalangeal joint of hallux (532056023) Bunion, right foot (M21.611) Active confirmed Plan Of Treatment No Information Insurance Providers Payer Name Payer Address Payer Phone Subscriber Number Group Number Insured Name Patient Relationship to Insured Coverage Start Date Coverage End Date [facility] [address] [place] [address] [phone] [id number] Darrick Gil Self - patient is the insured Medical (General) History Medical History History ICD Code Back,Hip,and Knee pain type II diabetes Hypertension Chicken pox Degenerative disc disease Avascular necrosis-right knee Benign prostatic hyperplasia (BPH) Kidney stones Prostate conditions Cholesterol Surgical History Surgery Date(Month/Year) appendectomy 1966 tonsillectomy 1978 hemorrhoidectomy 1981
--- OUTSIDE RECORDS SUMMARY | 2024-12-03 11:26 | XMS_ITS | Clinical Summary ---
Author Organization [facility] Address [address] [place], [place] [id number] Care Team Providers Care Dividend Deposit Entry Clerk Name Role Phone Johnson ELAM MD, Balwinder Martin Primary Care Provider [phone] Allergies No known active allergies Medications Medication [...] Fall Risk Assessment 2021 Influenza Vaccine (#1) 2025 RSV Adult > 60+ Yrs or Pregn ant (1 - 1-dose 75+ series) 2031 Hepatitis B Vaccines Aged Out No long er eligible based on patient's age to complete this topic RSV Ped < 20 months Aged Out No longe r eligible based on patient's age to complete this topic Insurance Payer Benefit Plan / Group Subscriber ID Effective Dates Phone Address [facility] [id number] [address] [place] [phone] O Care Teams Dividend Deposit Entry Clerk Relationship Specialty Start Date End Date Balwinder Ornelas II, MD [address] [place] [address] PCP - General Internal Medicine 09/12/17
--- OUTSIDE RECORDS SUMMARY | 2024-12-03 11:27 | XMS_ITS | Data Portability ---
Author Organization [place] - [facility], Allergy Address [address] [address] Care Team Providers Care Barrel Header Name Role Phone TYLER NGUYEN Primary Care [...] the area [place] Not available 04/05/2024 11:55:06 06/21/2024 06/21/2024 69 year old male presents for ear cleaning. Ears were meticulously cleaned bilaterally today with fine pics and suction. Patient is encouraged to avoid Q-tips in his ears relative to packing the wax in tighter. He will follow up in 3 months when he returns from [place], [place] for the season. Not available 06/21/2024 [...] Organization Detail LastModifiedTime 01/04/20 24 05/24/2019 imagi ng/eugene colon tic resul t No observ ation record ed. [email or web address] Not Available 19:35:24 Result Notes None recorded. Problems Name Problem SNOMED Code Status Onset Date Resolution Date Notes Provider Name and Address Organization Details Recorded Time Pain of right temporoma ndibular joint [id number] 101959 Active 2019 Arthralgi a of right temporoma ndibular joint; Note: Changed from M26.62 to M26.621 ( 0 12:59 PM) , Date Diagnosed : 05/24/2019 4:08 PM (M26.62) Not Available [facility] 4 02:51:54 Abnormal auditory perceptio n 60564672 Active 2019 Other abnormal auditory perceptio ns, right ear; Note: Changed from H93.293 to H93.291 ( 0 1:01 PM) , Date Diagnosed : 05/27/2019 1:00 PM (H93.293) Not Available [facility] 4 02:51:52 Impacted cerumen of bilateral ears 59710515816 87533 Active 2019 Impacted cerumen, bilateral ; Note: Date Diagnosed : 09/23/2019 1:57 PM (H61.23) Not Available [facility] 4 02:51:53 Hoarse 20135181 Active 2024 FREEMAN ORTIZ PA-C [address] [place] [address],[place] [address], [place], [address] , [facility] 5 08:36:57 Problem Notes None recorded. Procedures Surgical History Date Name Laterality Status Provider Name and Address Organization Details Recorded Time 5 Cerumen removal without microscope bilat completed FREEMAN ORTIZ PA-C [address], [place], [address], [facility] - [facility] 09/20/2024 08:35:34 5 Cerumen removal without microscope bilat completed FREEMAN ORTIZ PA-C [address], [place], [address], [facility] - [facility] 06/21/2024 08:14:49 4 Cerumen removal without microscope bilat completed FREEMAN ORTIZ PA-C [address] [facility] [address], [place], [address], [facility] - [facility] 04/05/2024 11:38:50 Imaging Results None recorded. Procedure [...] a day 03/06 completed Medicati on ID: [id number] D uration Value: 5 Brand Name: predniso ne Send Method: E-Prescr ibed Sub s Allowed: subs OK Medic ationGen ericName : predniso ne Not Available Not Available Not Available meloxicam 15 mg tablet TAKE 1 TABLET BY MOUTH EVERY DAY 09/20 completed Not Available Not Available Not Available FreeStyle Lancets 28 gauge 08/25 completed Medicati on ID: [id number] B rand Name: FreeStyl e Lancets Send Method: E-Prescr ibed Sub s Allowed: subs OK Medic ationGen ericName : FreeStyl e Lancets Not Available Not Available Not Available lisinopri l 20 mg tablet TAKE 1 TABLET BY MOUTH EVERY DAY FOR 30 DAYS active Not Available Not Available No t Available tamsulosi n 0.4 mg capsule 08/25 completed Medicati on ID: [id number] B rand Name: tamsulos in Send Method: E-Prescr ibed Sub s Allowed: subs OK Medic ationGen ericName : tamsulos in Not Available Not Available Not Available gabapenti n 300 mg capsule TAKE 1-2 CAPSULE BY MOUTH THREE TIMES A DAY 06/21 completed Not Available Not Available Not Available pravastat in 20 mg tablet 03/06 completed Medicati on ID: [id number] D uration Value: 90 Brand Name: pravasta tin Send Method: E-Prescr ibed Sub s Allowed: subs OK Speci al Instruct ion: TAKE 1 TABLET BY MOUTH EVERY DAY Medi cationGe nericNam e: pravasta tin Not Available Not Available Not Available gabapenti n 100 mg capsule 06/21 completed Medicati on ID: [id number] B rand Name: gabapent in Send Method: E-Prescr ibed Sub s Allowed: subs OK Medic ationGen ericName : gabapent in Not Available Not Available Not Available metformin ER 500 mg tablet,ex tended release 24 hr 1 TABLET WITH EVENING MEAL ORALLY 4 TIMES DAILY 90 DAYS active Not Available Not Available No t Available tobramyci n 0.3 %-dexamet hasone 0.1 % eye drops,[facility] ONE DROP IN THE LEFT EYE THREE TIMES A DAY FOR FIVE DAYS THEN STOP 06/21 completed Not Available Not Available Not Available Kami Aspirin 06/21 completed Medicati on ID: [id number] B rand Name: kami aspirin Send Method: E-Prescr ibed Sub s Allowed: subs OK Medic ationGen ericName : kami aspirin Not Available Not Available Not Available FreeStyle Lite Meter kit 2020 active Medicati on ID: [id number] B rand Name: FreeStyl e Lite Meter Se nd Method: E-Prescr ibed Sub s Allowed: subs OK Speci al Instruct ion: CHECK BLOOD SUGARS ONCE A DAY DX DM TYPE2 E11.9 Me dication GenericN sam: FreeStyl e Lite Meter Not Available Not Available Not Available FreeStyle Lite Strips 08/25 completed Medicati on ID: [id number] B rand Name: FreeStyl e Lite Strips [...] Not Available Not Available FreeStyle Lisa 3 [place] active Not Available Not Available Not Available FreeStyle Lisa 3 Plus Sensor device DIRECTED CHANGE EVERY 14 DAYS 28 active Not Available Not Available No t Available Vitals Date Recorded Body height Body mass index (BMI) Body weight Provider Name and Address Organization Details Last Updated DateTime 06/21/2024 180.34 cm 30.7 kg/m2 62354.32 g Christine Mccrary [place] [facility] 06/21/2024 07:56:01 Date Recorded Body height Body mass index (BMI) Body weight Provider Name and Address Organization Details Last Updated DateTime 09/20/2024 180.34 cm 30.7 kg/m2 54121.32 g Shae Jameson [place] [facility] 09/20/2024 08:06:42 Date Recorded Body height Body mass index (BMI) Body weight Provider Name and Address Organization Details Last Updated DateTime 12/06/2023 180.34 cm 32.8 kg/m2 620345.21 g Josefina Lema [place] [facility] 12/06/2023 09:07:55 Date Recorded Body height Body mass index (BMI) Body weight Provider Name and Address Organization Details Last Updated DateTime 04/05/2024 180.34 cm 32.8 kg/m2 995431.21 g Shae Jameson [place] [facility] 04/05/2024 11:26:23 Social History None recorded. Functional Status None recorded. Mental Status None recorded. Family History Nothing Reported. Medical History No medical history recorded. Past Encounters Encounter ID Performer Location Encounter Start Date Encounter Closed Date Diagnosis/Indication Diagnosis SNOMED-CT Code Diagnosis ICD10 Code Diagnosis Note [id number] MARY KRISHNAN PA-C [facility] on [address] [place] [address] [place] [address] 12/06/2023 08:56:13 12/06/2023 09:17:11 Impacted cerumen of bilateral ears 5409910896 039296 H61.23 [id number] FREEMAN ORTIZ PA-C [facility] on [address] [place] [address] [place] [address] 04/05/2024 11:18:09 04/05/2024 11:38:18 Impacted cerumen of bilateral ears 8028353296 215233 H61.23 [id number] FREEMAN ORTIZ PA-C [facility] on [address] [place] [address] [place] [address] 06/21/2024 07:46:34 06/21/2024 08:14:12 Impacted cerumen of bilateral ears 7738591680 760517 H61.23 [id number] FREEMAN ORTIZ PA-C [facility] on [address] [place] [address] [place] [address] 09/20/2024 07:59:07 09/20/2024 08:36:39 Impacted cerumen of bilateral ears 3829776129 640849 H61.23 Hoarse 26686087 R49.0 Health Concerns Section Related Observation LastModified by Organization Detai ls LastModified Time None Recorded Concern Status LastModified by Organization Details LastModified Time None Recorded Advance Directives Directive None Recorded Payers Insurance Date Sequence Insurance Name Policy Number Policy Galvez Covered Member ID Galvez Member ID Guarantor Name 09/20/2024 1 [facility]: MEDICARE PPO BLUE (MEDICARE REPLACEMENT PPO) [id number] Darrick Gil [id number] Darrick Gil Notes Date Note Type Note Provider Name and Address Organization Details Recorded Time 12/06/2023 text/html 68 year old male presents today for cerumen removal.No concerns today. Mary franks [place] - [facility] 12/06/2023 09:13:40 04/05/2024 text/html 69 year old male presents for ear cleaning. No concerns. KEYA COLBERT MD [address] [place] [address], [phone], [facility] - [facility] [place] 04/08/2024 08:27:13 06/21/2024 text/html 69 year old male presents for ear cleaning. No concerns. KEYA COLBERT MD [address] [place] [address], [place], [address], [facility] - [facility] 06/21/2024 09:10:42 09/20/2024 text/html 69 [...] He is a nonsmoker. KEYA COLBERT MD [address] [place] [address], [place], [address], [facility] - [facility] 09/20/2024 13:00:42
== END 2024-12-03 11:10 | disposition home or self-care (01) ==
LOC: HO.ENCR 10:20
PROVIDERS: PCP Internal Medicine; Visit Provider Physician Assistant Medical
DX: E11.40 Type 2 diabetes mellitus with diabetic neuropathy, unspecified (principal)

== ENCOUNTER → 2024-12-03 10:19 | Outpatient (BNVA) | payer MEDICARE, SELFPAY | PROVIDERS: PCP Internal Medicine; Visit Provider Physician Assistant Medical | DX: E11.40 Type 2 diabetes mellitus with diabetic neuropathy, unspecified (principal) | CPT/HCPCS: 82947; 83036; 99212 ==

== ENCOUNTER 2024-12-16 11:19 | Outpatient (AMB) | payer MEDICARE, SELFPAY ==
--- OUTSIDE RECORDS SUMMARY | 2024-11-18 06:06 | XMS_ITS ---
Author Organization [facility] Address [address] [place] [phone] Care Team Providers Care Wic Site Coordinator Name Role Phone RADHA NGUYEN Primary Care Provider REASON FOR VISIT Update Kiosk Demographics Encounters Encounter Location Date Provider Diagnosis [facility] [address] [place] [address] 11/18/2024 RADHA NGUYEN PLAN OF TREATMENT Next Appt Details Provider Name:RADHA NGUYEN, 04/28/2025 10:00:00 AM, [address] [place], [address],
--- OUTSIDE RECORDS SUMMARY | 2024-12-11 12:09 | XMS_ITS | Encounter Summary ---
Author Organization [facility] Address [address] [place] [address] Phone Care Team Providers Care Director Of Brand Marketing Name Role Phone Polo Bergman MD Primary Care Provider [phone] Reason for Referral * MRI/CAT Scan - Closed Specialty Diagnoses / Procedures Referred By Contac t Referred To Contact Radiology Diagnoses Spondylolisthesis of lumbosacral region Procedures CT Lumbar Spine CHG CT SCAN,LUMBAR SPINE,W/O CONTRAST CHG CT SCAN LUMBAR SP CONTRAST CHG CT SCAN LUMBAR SP JESSICAO Minesh Carl MD [address] [facility] [address] [place] [address] Phone: tel: fax: mailto:[email or web address] Referral ID Status Reason Start Date Expiration Date Visits Re quested Visits Authorized [id number] Closed 12/04/2024 02/01/2025 1 1 Reason for Visit * MRI/CAT Scan - Closed Specialty Diagnoses / Procedures Referred By Contac t Referred To Contact Radiology Diagnoses Spondylolisthesis of lumbosacral region Procedures CT Lumbar Spine CHG CT SCAN,LUMBAR SPINE,W/O CONTRAST CHG CT SCAN LUMBAR SP CONTRAST CHG CT SCAN LUMBAR SP COMBO Minesh Carl MD [address] [facility] [address] [place] [id number] Phone: tel: fax: mailto:[email or web address] Referral ID Status Reason Start Date Expiration Date Visits Re quested Visits Authorized [id number] Closed 12/04/2024 02/01/2025 1 1 Encounter Details Date Type Department Care Team (Late st Contact Info) Description 12/11/2024 12:09 PM EDT - 12/11/2024 11:59 PM EDT Hospital Encounter [facility], Ct Scan - [address] [address] Minesh Carl MD [address] [place] [address] [email or web address] Discharge Disposition: Home or Self Care Social History Tobacco Use Types Packs/Day Years Used Date Smoking Tobacco: Never Smokeless Tobacco: Never Alcohol Use Standard Drinks/Week Comments No 0 (1 standard drink = 0.6 oz pur e alcohol) Education Answer Date Recorded Are you interested in more education? Not on lio e 09/09/2022 Are you concerned about learning? Not on file 09/09/2022 No 09/09/2022 No 09/09/2022 Digital Access Answer Date Recorded No 10/08/2022 No 10/08/2022 No 10/08/2022 Reliable internet access at home? Not on file 10/08/2022 Device with a working camera? Not on file Sex and Gender Information Value Date Recorded Sex Assigned at Male 01/15/2020 2:37 PM EDT Legal Sex Male 1:43 PM EDT Gender Identity Male 01/15/2020 2:37 PM EDT Sexual Orientation Straight 01/15/2020 2: 37 PM EDT documented as of this encounter Medications at Time of Discharge aspirin 81 MG EC tablet Take 81 mg by mouth daily. lisinopril (PRINIVIL,ZESTRIL) 20 MG tablet Take 20 mg by mouth daily. metFORMIN (GLUCOPHAGE) 1000 MG tablet Take 1,000 mg by mouth 2 (two) times a day with meals. pravastatin (PRAVACHOL) 20 MG tablet Take 20 mg by mouth daily. documented as of this encounter Plan of Treatment Not on file documented as of this encounter Procedures Procedure Name Priority Date/Time Associated Diagnosis Comments CT LUMBAR SPINE WITHOUT CONTRAST Routine 12/11/2024 12:23 PM EDT Spondylolisthesis of lumbosacral region documented in this encounter Results * CT LUMBAR SPINE WITHOUT CONTRAST (12/11/2024 12:23 PM EDT) Anatomical Region Laterality Modality L-spine Computed Tomogra phy 12/13/2024 12:1 3 PM EDT Impressions 12/13/2024 12:18 PM EDT 1. Rfxt-xn-hrsrvyke scoliosis of the lumbar spine with convexity towards LEFT centered at L1-L2, with multilevel degenerative changes, most prominent at L2-L3, L3-L4 and L4-L5 with moderate to severe bony foraminal stenosis, better evaluated on MRI from February 17, 2024. MRI lumbar spine could be obtained for improved evaluation. 2. Multiple bilateral nonobstructive renal stones measuring up to 4 mm. Narrative 12/13/2024 12:[address] LUMBAR SPINE WITHOUT CONTRAST Referring clinician's provided indication for this examination in Epic: * Low back pain, > 6 wks; Sagittal balance, tends to festinate leaning forward. TECHNIQUE: Multidetector-row CT of the lumbar spine was performed without intravenous contrast using tailored dose modulation techniques. Images were reconstructed in the axial, coronal, and sagittal planes. COMPARISON: XR LUMBOSACRAL SPINE 4 OR MORE VIEWS ; MRI SPINE MUSCULOSKELETAL FOCUS OUTSIDE (NO INTERPRETATION) FINDINGS: LUMBAR SPINE: Alignment and Vertebrae: Oyfd-ce-izxdscex scoliosis of the lumbar spine with convexity towards LEFT centered at L1-L2. Vertebral body height is maintained. Discs and Endplates: Moderate severe multilevel loss of disc height with vacuum disc phenomenon at L2-L3, L3-L4 and L4-L5. Soft Tissue: No prevertebral soft tissue thickening. Multiple bilateral nonobstructing renal stone/renal ossicle calcifications, measuring up to 4 mm. No hydronephrosis. Other Findings: Degenerative changes with multilevel bony foraminal stenosis, most prominent L2-L3, L3-4, and L4-L5 with moderate to severe bony LEFT foraminal stenosis. Procedure Note Fritz Lares MD, PhD - 12/13/2024 CT LUMBAR SPINE WITHOUT CONTRAST Referring clinician's provided indication for this examination in Epic: *Low back pain, > 6 wks; Sagittal balance, tends to festinate leaningforward. TECHNIQUE: Multidetector-row CT of the lumbar spine was performed withoutintravenous contrast using tailored dose modulation techniques. Imageswere reconstructed in the axial, coronal, and sagittal planes. COMPARISON: XR LUMBOSACRAL SPINE 4 OR MORE VIEWS ; MRI SPINEMUSCULOSKELETAL FOCUS OUTSIDE (NO INTERPRETATION) FINDINGS: LUMBAR SPINE: Alignment and Vertebrae: Iwhr-vs-mnxdasuw scoliosis of the lumbar spinewith convexity towards LEFT centered at L1-L2. Vertebral body height ismaintained. Discs and Endplates: Moderate severe multilevel loss of disc height withvacuum disc phenomenon at L2-L3, L3-L4 and L4-L5. Soft Tissue: No prevertebral soft tissue thickening. Multiple bilateralnonobstructing renal stone/renal ossicle calcifications, measuring up to 4mm. No hydronephrosis. Other Findings: Degenerative changes with multilevel bony foraminalstenosis, most prominent L2-L3, L3-4, and L4-L5 with moderate to severebony LEFT foraminal stenosis. IMPRESSION: 1. Jmqr-js-xgmfzvfd scoliosis of the lumbar spine with convexity towardsLEFT centered at L1-L2, with multilevel degenerative changes, mostprominent at L2-L3, L3-L4 and L4-L5 with moderate to severe bony foraminalstenosis, better evaluated on MRI from February 17, 2024. MRI lumbar spinecould be obtained for improved evaluation. 2. Multiple bilateral nonobstructive renal stones measuring up to 4 mm. Minesh Carl MD IMG CT XSPECIALTY ORDERABLES Final Result documented in this encounter Visit Diagnoses Diagnosis Spondylolisthesis of lumbosacral region documented in this encounter Care Teams Director Of Brand Marketing Relationship Specialty Start Date End Date Polo Bergman MD [address] [place] [id number] PCP - General Internal Medicine 10/10/24 documented as of this encounter Additional Source Comments The information contained in this document represents components of the legal health record. It is not the complete legal health record.[facility]
[2024-12-16 11:41] VITALS: BMI 31.8
--- NOTE | 2024-12-16 11:41 | A.OFFVIS_ITS ---
VS Expanded 12/16/24 11:41 Height 5 ft 11 in Weight 228 lb 2.855 oz BMI 31.8 Intake Visit Reasons: T2DM Allergies No Known Allergies Allergy (Verified 12/03/24 10:26) Nutrition Presentation Details: Pt presents for MNT f/u for T2DM Pt reports choosing leaner protein in foods and lower sugar foods Food frequency fish twice/week fruits 0-1/d dairy: choosing lactose free d/t intolerance : 0-2/d vegetables > 4/d starches : 8-12/d fats: nuts/seeds, oilive oil , olives no sugar added, reading food labels most recent A1c 6.2% (11/2024), reports low BG 1 int he past 2 weeks, treated by having 1/2 c of juice [facility] Medical History (Updated 12/03/24 @ 11:05 by JOANNA Freire) Essential hypertension Hypercholesteremia Controlled type 2 diabetes with neuropathy Surgical History Hx of hemorrhoidectomy Hx of tonsillectomy History of appendectomy Family History Father Family history of diabetes mellitus Mother Family history of diabetes mellitus Social History Alcohol intake: current Alcohol intake frequency: does not drink Patient Tobacco Use Status: Never used Tobacco Assessment & Plan Assessment & Plan (1) Controlled type 2 diabetes with neuropathy: Code(s): E11.40 - Type 2 diabetes mellitus with diabetic neuropathy, unspecified Category: Medical Plan: Wt: 103 Kg ( 11/06 ), 01/06 Est kcal needs as per MSJ: 2200 (40% carb, 30% protein/fat) Est fluid needs as per 25-30 ml/d: 3100 Est prot per day as per 1 g/kg bw: 100 Recommend fiber intake : 8-10 g per day and gradually increase to 25-28 g per day for women and 35-38 g for men or as tolerated Recommend sodium intake per day : less than 2300 mg Educated patient on: ( R = reviewed V = verbalizes understanding N/R = needs review N/A = not applicable * Food sources of carbohydrate, adequate serving sizes and its role in various health conditions: R V N/R * Differences between complex carbohydrates a simple carbohydrates, role of fiber in diet: R * Lean protein sources of foods: R V * Differences between types of fats and role in diet (mono on saturated fat fatty acids, saturated fatty acids, trans fats): R * Food sources of sodium in salt and healthy modifications for heart health in kidney health: R V R/V * Vitamins and minerals: R * Healthy plate method concept: R * Physical activity: Benefits a precaution: R * Hypoglycemia protocol: R Patient Instructions: Include at least 1-2 fruits a day (for fiber) replacing a serving of starch Coding Level of Care Code Nutr Indiv Subseq (01714) Diagnoses Controlled type 2 diabetes with neuropathy E11.40 Time Spent (min) 30
--- OUTSIDE RECORDS SUMMARY | 2024-12-16 12:16 | XMS_ITS | Clinical Summary ---
Author Organization [facility] Address [address] [place] [address] Care Team Providers Care Electrician Assistant Name Role Phone Johnson ELAM MD, Balwinder Martin Primary Care Provider [phone] Allergies No known active allergies Medications Medication [...] Group Subscriber ID Effective Dates Phone Address [id number] [address] [place] [id number] O Care Teams Electrician Assistant Relationship Specialty Start Date End Date Balwinder Ornelas II, MD [address] [place] [address] PCP - General Internal Medicine 09/12/17
--- OUTSIDE RECORDS SUMMARY | 2024-12-16 12:16 | XMS_ITS | Patient Health Record ---
Author Organization [facility] Bridget Moraley Address [address] [facility] [place] [address] Care Team Providers Care Teen Counselor Name Role Phone Balwinder Ornelas MD Primary Care Provider Unavailab Gregory Mary Unavailable [phone] Reason For Referral No Information Medications Medication [...] primary osteoarthritis of the ankle and/or foot (095070735) Primary osteoarthritis, right ankle and foot (M19.071) Active confirmed Problem Polyneuropathy due to type 2 diabetes mellitus (191467841) Type 2 diabetes mellitus with diabetic polyneuropathy (E11.42) Active confirmed Problem Bunion, right foot (M21.611) Active confirmed Plan Of Treatment No Information Insurance Providers Payer Name Payer Address Payer Phone Subscriber Number Group Number Insured Name Patient Relationship to Insured Coverage Start Date Coverage End Date [facility] [address] [facility] [place] [address] [id number] Darrick Gil Self - patient is the insured Medical (General) History Medical History History ICD Code Back,Hip,and Knee pain type II diabetes Hypertension Chicken pox Degenerative disc disease Avascular necrosis-right knee Benign prostatic hyperplasia (BPH) Kidney stones Prostate conditions Cholesterol Surgical History Surgery Date(Month/Year) appendectomy 1966 tonsillectomy 1978 hemorrhoidectomy 1981
== END 2024-12-16 13:44 | disposition home or self-care (01) ==
LOC: HO.ENCR 11:20
PROVIDERS: PCP Internal Medicine; Visit Provider Dietitian, Registered
DX: E11.40 Type 2 diabetes mellitus with diabetic neuropathy, unspecified (principal)

== ENCOUNTER → 2024-12-16 11:19 | Outpatient (BNVA) | payer MEDICARE, SELFPAY | PROVIDERS: PCP Internal Medicine; Visit Provider Dietitian, Registered | DX: E11.40 Type 2 diabetes mellitus with diabetic neuropathy, unspecified (principal) | CPT/HCPCS: 97803 ==

== ENCOUNTER 2025-01-08 11:02 | Outpatient (REF) | payer MEDICARE, SELFPAY ==
--- OUTSIDE RECORDS SUMMARY | 2024-11-07 10:40 | XMS_ITS ---
Author Organization [facility] Address [facility] [place], [place] [id number] Care Team Providers Care Street Car Mechanic Name Role Phone PATRICK RADHA Primary Care Provider [phone] REASON FOR VISIT Labwork Encounters Encounter Location Date Provider Diagnosis [address] [address] 11/07/2024 RADHA NGUYEN Essential (primary) hypertension I10 ASSESSMENTS Encounter Date Diagnosis Assessment Notes Treatment Notes Treatment Clinical Notes Section Notes 11/07/2024 Essential (primary) hypertension (ICD-10 - I10) PLAN OF TREATMENT Next Appt Details Provider Name:RADHA NGUYEN, 04/28/2025 10:00:00 AM, [address] [place], [address],
--- OUTSIDE RECORDS SUMMARY | 2024-11-18 06:06 | XMS_ITS ---
Author Organization [facility] Address [address] [place] [phone] Care Team Providers Care Home Service Technician Name Role Phone RADHA NGUYEN Primary Care Provider [phone] REASON FOR VISIT Update Kiosk Demographics Encounters Encounter Location Date Provider Diagnosis [facility] [address] [place] [address] 11/18/2024 RADHA NGUYEN PLAN OF TREATMENT Next Appt Details Provider Name:RADHA NGUYEN, 04/28/2025 10:00:00 AM, [address] [place], [address],
--- OUTSIDE RECORDS SUMMARY | 2024-11-21 07:15 | XMS_ITS ---
Author Organization [facility] Address [address] [place], [place] [id number] Care Team Providers Care Recreation Attendant Supervisor Name Role Phone RADHA NGUYEN Primary Care Provider ALLERGIES No Known Allergies REASON FOR VISIT 3 mo f/u Diabetes MEDICATIONS Medication SIG (Take, Route, Frequency, Duration) Notes Start Date End Date Status metFORMIN HCl 500 MG 2 tabs in the a.m. and 1 tab in p.m. orally twice daily Active FreeStyle Lisa 3 Plus Sensor - DIRECTED CHANGE EVERY 14 DAYS for 28 Active MiraLax 17 GM/SCOOP 1 scoop mixed with 8 ounces of fluid Orally qod Active Atorvastatin Calcium 80 MG 1 tablet Oral ly Once a day for 90 day(s) Active Lisinopril 40 MG 1 tablet Orally Once a day for 90 days Active FreeStyle Lisa 3 [place] - as directed 03/29/2024 Active SOCIAL HISTORY Tobacco Use: Social History Observation Description Date Details (start date - stop date) Never Smoker NA - NA Sex Assigned At : Social History Observation Description Sex Assigned At Unknown Smoking Question Answer Notes Are you a: never smoker VITAL SIGNS Height 70 in 11/21/2024 Weight 223.4 lbs 11/21/2024 Blood pressure systolic 130 mm Hg 11/22/19 25 Blood pressure diastolic 78 mm Hg 025 BMI 32.05 kg/m2 11/21/2024 Encounters Encounter Location Date Provider Diagnosis [facility] [address] [place] [address] 11/21/2024 RADHA NGUYEN Type 2 diabetes mellitus without complication, without long-term current use of insulin E11.9 ; Essential (primary) hypertension I10 ; Mixed hyperlipidemia E78.2 ; Spinal stenosis of lumbar region with neurogenic claudication M48.062 and Kidney stones N20.0 ASSESSMENTS Encounter Date Diagnosis Assessment Notes Treatment Notes Treatment Clinical Notes Section Notes 11/21/2024 Type 2 diabetes mellitus without complication, without long-term current use of insulin (ICD-10 - E11.9) He will continue to be followed by Kely MARSHALL, so I wont get involved with managing his DM. His home BS are very good. 11/21/2024 Essential (primary) hypertension (ICD-10 - I10) BP at home is 120's/70's consistently on lisinopril to 40 mg daily. He is tolerating it well. He does have a persistent cough. I offered a change to ARB, but the cough is a minor nusance. 11/21/2024 Mixed hyperlipidemia (ICD-10 - E78.2) No myalgias from atorvastatin. LDL was 36. He needs aggressive lipid control due to an elevated LP(a) and family history of CAD. 11/21/2024 Spinal stenosis of lumbar region with neurogenic claudication (ICD-10 - M48.062) He describes having spinal stenosis of the lumbar spine as evidenced by an MRI last year through [facility]. He has severe pain in limitation of walking due to neurologic claudication. Dr Sheldon's note reviewed. Going by his MRI in February 2024, there was no convincing nerve root compression but there was protruding disc in the L3-[address] Young felt, in second opinion, that this would be amenable to surgery and a third opinion [place] [facility] [place]. Lumbar decompression sounds to make a lot of sense, particularly since his activity is markedly restricted. 11/21/2024 Kidney stones (ICD-10 - N20.0) He has recurrent calcium kidney stones, followed at [facility]. PSA was 1.5. US 09/25/24. 11/21/2024 Other I encouraged another covid booster, as it has been > 1 year, he has no h/o infection, and is protecting a compromised . PLAN OF TREATMENT Medication Medication Name Sig Start Date Stop Date Notes Atorvastatin Calcium 80 MG 1 tablet Oral ly Once a day for 90 day(s) Lisinopril 40 MG 1 tablet Orally Once a day for 90 days Treatment Notes Assessment Notes Type 2 diabetes mellitus wit hout complication, without long-term current use of insulin He will continue to be followed by Kely MARSHALL, so I wont get involved with managing his DM. His home BS are very good. Essential (primary) hypertension BP at h ome is 120's/70's consistently on lisinopril to 40 mg daily. He is tolerating it well. He does have a persistent cough. I offered a change to ARB, but the cough is a minor nusance. Mixed hyperlipidemia No myalgias from atorvastatin. LDL was 36. He needs aggressive lipid control due to an elevated LP(a) and family history of CAD. Spinal stenosis of lumbar re gion with neurogenic claudication He describes having spinal stenosis of the lumbar spine as evidenced by an MRI last year through [facility]. He has severe pain in limitation of walking due to neurologic claudication. Dr Sheldon's note reviewed. Going by his MRI in February 2024, there was no convincing nerve root compression but there was protruding disc in the L3-[address] Young felt, in second opinion, that this would be amenable to surgery and a third opinion at [facility] [place]. Lumbar decompression sounds to make a lot of sense, particularly since his activity is markedly restricted. Kidney stones He has recurrent valente cium kidney stones, followed at [facility]. PSA was 1.5. US 09/25/24. Other I encouraged another covid booster, as it has been > 1 year, he has no h/o infection, and is protecting a compromised . Next Appt Details Follow Up: 6 Months, Reason: Provider Name:RADHA NGUYEN, 04/28/2025 10:00:00 AM, [address] [place], [address], Progress Notes * Examination Category Sub-Category Detail Notes Category Not es General Examination HEENT: EOMI Neck: no lymphadenopathy, no thyromegaly, no carotid bruit, JVP flat Heart: RRR, no murmur, , no rmal S1S2 Lungs: clear to auscultatio n Abdomen: soft, non tender/non distended, no hepatosplenomegaly, excess abd skin (from >110 lb weight loss) Extremities: normal ROM, no clubb ing , cyanosis, or edema, severe onychomycosis both great toenails General Appearance alert, well built an d nourished, no apparent distress Neuro alert and oriented x 3, gait normal
--- OUTSIDE RECORDS SUMMARY | 2025-01-08 11:58 | XMS_ITS | Encounter Summary ---
Author Organization [facility] Address [address] [facility] [facility] [address] [place] [address] Phone Care Team Providers Care Design Architect Name Role Phone Polo Bergman MD Primary Care Provider [phone] Reason for Referral * MRI/CAT Scan - New Request Specialty Diagnoses / Procedures Referred By Contac t Referred To Contact Radiology Diagnoses Lumbar back pain with radiculopathy affecting left lower extremity Procedures MRI Lumbar Spine Minesh Carl MD [address] [facility] [address] [place] [address] Phone: tel: fax: mailto:[email or web address] Referral ID Status Reason Start Date Expiration Date V isits Requested Visits Authorized [id number] New Request 01/03/2025 1 1 Encounter Details Date Type Department Care Team (Late st Contact Info) Description 01/03/2025 Orders Only [facility]PART[facility] [address] [place] [address] Minesh Carl MD [address] [place] [phone] [email or web address] Lumbar back pain with radiculopathy affecting left lower extremity (Primary Dx) Social History Tobacco Use Types Packs/Day Years [...] PM EDT documented as of this encounter Plan of Treatment Upcoming Encounters Date Type Department Care Team (Late st Contact Info) Description 01/29/2025 11:30 AM EDT Evaluation [facility] Interventional Spine, [facility] [address] [place] [address] Kashif Sullivan Abd, MD [address] [place] [address] Scheduled Orders Name Type Priority Associated Diagnoses Orde r Schedule MRI Lumbar Spine Imaging Routine Lumbar back pain with radiculopathy affecting left lower extremity Expected: 02/03/2025, Expires: 04/05/2025 documented as of this encounter Visit Diagnoses Diagnosis Lumbar back pain with radiculopathy affecting left lower extremity- Primary documented in this encounter Care Teams Design Architect Relationship Specialty Start Date End Date Polo Bergman MD [address] [place] [address] PCP - General Internal Medicine 10/10/24 documented as of this encounter Additional Source Comments The information contained in this document represents components of the legal health record. It is not the complete legal health record.[facility]
--- OUTSIDE RECORDS SUMMARY | 2025-01-08 11:58 | XMS_ITS | Patient Health Record ---
Author Organization [facility] Address [facility] [place], [place] [id number] Care Team Providers Care Investigative Assistant Name Role Phone RADHA NGUYEN Primary Care Provider ACOSTASILVINA [phone] ALLERGIES No Known Allergies RESULTS Component Value Reference Range Notes Hemoglobin [id number] Reviewed date:04/01/2024 07:49:26 AM Interpretation: Performing Lab:[facility] [place], [address] [facility], Phone - [phone], Director - Aba Notes/Report: Hemoglobin A1c 7.1 4.8-5.6 % . Prediabetes: 5.7 - 6.4 Diabetes: >6.4 Glycemic control for adults with diabetes: <7.0 Lipoprotein (a)-[id number] Reviewed date:08/21/2024 08:14:30 PM Interpretation: Performing Lab:[facility] [place], [address] [facility], Phone - [phone], Director - MDAdelinadry Notes/Report: Lipoprotein (a) 108.7 <75.0 nmol/L Note: Values greater than or equal to 75.0 nmol/L may indicate an independent risk factor for CHD, but must be evaluated with caution when applied to non- populations due to the influence of genetic factors on Lp(a) across ethnicities. EKG Reviewed date:08/19/2024 10:01:30 AM Interpretation: Performing Lab: Notes/Report: ECGDiastolicBP ECGHr ECGPRInterval ECGPWaveAxis ECGQRSDuration ECGQrsWaveAxis ECGQTcInterval ECGQTInterval ECGSystolicBP ECGTWaveAxis RR_DiastolicBP RR_MaxRRInterval RR_MeanHR RR_MeanRRInterval RR_MinRRInterval RR_NumBeats RR_NumNormalBeats RR_SystolicBP Hgb A1c with eAG Estimation- [id number] Reviewed date:08/21/2024 08:14:30 PM Interpretation: Performing Lab:[facility] [place], [address] [facility], [place], Phone - [phone], Director - Aba Notes/Report: Hemoglobin A1c 6.3 4.8-5.6 % . Prediabetes: 5.7 - 6.4 Diabetes: >6.4 Glycemic control for adults with diabetes: <7.0 Estim. Avg Glu (eAG) 134 CBC With Differential/Platel et-[id number] Reviewed date:08/21/2024 08:14:30 PM Interpretation: Performing Lab:[facility] [place], [address] [facility], [place], Phone - [phone], Director - Aba Notes/Report: WBC 6.3 3.4-10.8 x10E3/uL RBC 5.52 4.14-5.80 x10E6/uL Hemoglobin 16.3 13.0-17.7 g/dL Hematocrit 50.1 37.5-51.0 % MCV 91 79-97 fL MCH 29.5 26.6-33.0 pg MCHC 32.5 31.5-35.7 g/dL RDW 12.6 11.6-15.4 % Platelets 247 150-450 x10E3/uL Neutrophils 73 Not Estab. % Lymphs 17 Not Estab. % Monocytes 8 Not Estab. % Eos 1 Not Estab. % Basos 0 Not Estab. % Immature Cells Neutrophils (Absolute) 4.6 1.4-7.0 x10E3/uL Lymphs (Absolute) 1.1 0.7-3.1 x10E3/uL Monocytes(Absolute) 0.5 0.1-0.9 x10E3/uL Eos (Absolute) 0.1 0.0-0.4 x10E3/uL Baso (Absolute) 0.0 0.0-0.2 x10E3/uL Immature Granulocytes 1 Not Estab. % Immature Grans (Abs) 0.0 0.0-0.1 x10E3/uL NRBC Hematology Comments: Vitamin [id number] Reviewed date:08/21/2024 08:14:30 PM Interpretation: Performing Lab:[facility] [place], [address] [facility], Phone - [phone], Director - Aba Notes/Report: Vitamin B12 [phone] pg/mL Comp. Metabolic Panel (14)-3 30016 Reviewed date:08/21/2024 08:14:30 PM Interpretation: Performing Lab:[facility] [place], [address] [facility], Phone - [phone], Director - Aba Notes/Report: Glucose 121 70-99 mg/dL BUN 17 8-27 mg/dL Creatinine 0.88 0.76-1.27 mg/dL eGFR 94 >59 mL/min/1.73 BUN/Creatinine Ratio 19 10-24 Sodium 140 134-144 mmol/L Potassium 4.1 3.5-5.2 mmol/L Chloride 101 96-106 mmol/L Anion Gap 20.0 10.0-18.0 mmol/L Carbon Dioxide, Total 19 20-29 mmol/L Calcium 10.3 8.6-10.2 mg/dL Protein, Total 7.2 6.0-8.5 g/dL Albumin 4.6 3.9-4.9 g/dL Globulin, Total 2.6 1.5-4.5 g/dL Bilirubin, Total 0.6 0.0-1.2 mg/dL Alkaline Phosphatase 84 44-121 IU/L AST (SGOT) 22 0-40 IU/L ALT (SGPT) 27 0-44 IU/L Albumin/Creatinine Ratio,Uri ne-[id number] Reviewed date:08/21/2024 08:11:35 PM Interpretation: Performing Lab:[facility] [place], [address] [facility], Phone - [phone], Director - Aba Notes/Report: Creatinine, Urine 76.8 Not Estab. mg/dL Albumin, Urine <3.0 Not Estab. ug/mL Alb/Creat Ratio <4 0-29 mg/g creat Normal: 0 - 29 Moderately increased: 30 - 300 Severely increased: >300 CBC With Differential/Platel et-[id number] Reviewed date:11/15/2024 06:35:48 PM Interpretation: Performing Lab:[facility] [place], [address] [facility], Phone - [phone], Director - [facility] Notes/Report: WBC 6.0 3.4-10.8 x10E3/uL RBC 5.06 4.14-5.80 x10E6/uL Hemoglobin 14.9 13.0-17.7 g/dL Hematocrit 45.3 37.5-51.0 % MCV 90 79-97 fL MCH 29.4 26.6-33.0 pg MCHC 32.9 31.5-35.7 g/dL RDW 13.1 11.6-15.4 % Platelets 246 150-450 x10E3/uL Neutrophils 69 Not Estab. % Lymphs 20 Not Estab. % Monocytes 8 Not Estab. % Eos 2 Not Estab. % Basos 1 Not Estab. % Immature Cells Neutrophils (Absolute) 4.2 1.4-7.0 x10E3/uL Lymphs (Absolute) 1.2 0.7-3.1 x10E3/uL Monocytes(Absolute) 0.5 0.1-0.9 x10E3/uL Eos (Absolute) 0.1 0.0-0.4 x10E3/uL Baso (Absolute) 0.0 0.0-0.2 x10E3/uL Immature Granulocytes 0 Not Estab. % Immature Grans (Abs) 0.0 0.0-0.1 x10E3/uL NR Hematology Comments: Comp. Metabolic Panel (14-3 [id number] Reviewed date:11/15/2024 06:35:40 PM Interpretation: Performing Lab:[facility] [place], [address] [facility], [place], Phone - [phone], Director - Aba Notes/Report: Glucose 112 70-99 mg/dL BUN 13 8-27 mg/dL Creatinine 0.98 0.76-1.27 mg/dL eGFR 84 >59 mL/min/1.73 BUN/Creatinine Ratio 13 10-24 Sodium 140 134-144 mmol/L Potassium 4.7 3.5-5.2 mmol/L Chloride 102 96-106 mmol/L Anion Gap 18.0 10.0-18.0 mmol/L Carbon Dioxide, Total 20 20-29 mmol/L Calcium 9.7 8.6-10.2 mg/dL Protein, Total 6.6 6.0-8.5 g/dL Albumin 4.3 3.9-4.9 g/dL Globulin, Total 2.3 1.5-4.5 g/dL Bilirubin, Total 0.5 0.0-1.2 mg/dL Alkaline Phosphatase 74 44-121 IU/L AST (SGOT) 24 0-40 IU/L ALT (SGPT) 28 0-44 IU/L LP+Non-HDL Cholesterol-[id number] 5 Reviewed date:08/21/2024 08:14:30 PM Interpretation: Performing Lab:[facility] [place], [address] [facility], Phone - [phone], Director - MDJodry Notes/Report: Cholesterol, Total 100 100-199 mg/dL Triglycerides 86 0-149 mg/dL HDL Cholesterol 47 >39 mg/dL VLDL Cholesterol Maurice 17 5-40 mg/dL LDL Chol Calc ([facility]) 36 0-99 mg/dL LDL Calc Comment: Non-HDL Cholesterol 53 0-129 mg/dL Comp. Metabolic Panel (14)-3 [id number] Reviewed date:04/01/2024 07:49:26 AM Interpretation: Performing Lab:[facility] [place], [address] [facility], [place], Phone - [phone], Director - MDJodry Notes/Report: Glucose 136 70-99 mg/dL BUN 15 8-27 mg/dL Creatinine 0.80 0.76-1.27 mg/dL eGFR 96 >59 mL/min/1.73 BUN/Creatinine Ratio 19 10-24 Sodium 143 134-144 mmol/L Potassium 4.5 3.5-5.2 mmol/L Chloride 103 96-106 mmol/L Anion Gap 17.0 10.0-18.0 mmol/L Carbon Dioxide, Total 23 20-29 mmol/L Calcium 9.6 8.6-10.2 mg/dL Protein, Total 7.0 6.0-8.5 g/dL Albumin 4.4 3.9-4.9 g/dL Globulin, Total 2.6 1.5-4.5 g/dL Bilirubin, Total 0.4 0.0-1.2 mg/dL Alkaline Phosphatase 81 44-121 IU/L AST (SGOT) 22 0-40 IU/L ALT (SGPT) 26 0-44 IU/L Albumin/Creatinine Ratio,Uri ne-[id number] Reviewed date:04/01/2024 07:49:26 AM Interpretation: Performing Lab:[facility] [place], [address], [place], Phone - [phone], Director - Aba Notes/Report: Creatinine, Urine 95.5 Not Estab. mg/dL Albumin, Urine <3.0 Not Estab. ug/mL Alb/Creat Ratio <3 0-29 mg/g creat Normal: 0 - 29 Moderately increased: 30 - 300 Severely increased: >300 REASON FOR REFERRAL Reason FAXED Bone Spur Referral Organization [facility] ernestina Referring Provider First Name RADHA Referring Provider Last Name PATRICK Referring Provider Speciality Internal edicine Referred Organization [facility] Referred Provider Specialty Orthopedic S urgery General Notes Martha PATINO Supervisor [employer] 05/10/2024 07:58:54 AM > Referral, ov note and xray results faxed.SUKUMAR Beth L Supervisor [employer] 10/27/2024 04:25:27 AM > 08/30/24 Consult note in chart, if no referral needed thank this can be addressed., Alexa PATINO Admin 11/05/2024 08:59:57 AM > no referral required>faxed to [facility] at [phone]>Encounter closed Referral Priority Routine Referral Appointment Date 08/30/[address] Surekha Henriquez manda Referral Organization [facility] Gayathri do Referring Provider First Name RADHA Referring Provider Last Name PATRICK Referring Provider Speciality Internal edicine Referred Provider Specialty Endocrinolog y General Notes [facility], Dr. Surekha Ca , [address] [place] [address]. [id number], (P) [phone] (F) [phone], Date of Service: Referral required first, Diagnosis: diabetic, w/6 visits, Martha PATINO Supervisor [employer] 08/29/2024 10:03:01 AM > Referral and ov note faxed.SUKUMAR Lisa K Referrals 08/30/2024 03:29:54 PM > No Referral Required PPO, faxed to [facility] at [phone] Referral Priority Routine Reason Leg Hip and Back Lele n Referral Organization [facility] ernestina Referring Provider First Name RADHA Referring Provider Last Name LAKRITZ Referring Provider Speciality Internal M edicine Referred Provider Specialty Neurological Surgery General Notes Neurosurgery, Att n: Clinical Access Team, [address] [facility], [place] [address], , This is for my leg, hip, and back pain that I have had for more than a year and dramatically limits my mobility. Multiple rounds of PT (for many months) and medications have not helped. I saw Dr Jair Sheldon of [facility] and he did not feel I needed surgery. I recently saw Dr Abraham Young of [facility] and he is recommending surgery ( nerve root tunneling ). Based on the two differing opinions and my ongoing pain and mobility issues I would like to get an opinion/recommendation from a second neurosurgeon. I have contacted the Neurosurgery department and they have requested documentation which I am preparing. They also require a referral. This can be faxed to [phone]. My must be shown on the referral., Martha PATINO Supervisor [employer] 09/23/2024 07:07:01 PM > Referral and ov note faxed. Referral Priority Routine MEDICATIONS Medication SIG (Take, Route, Frequency, Duration) Notes Start Date End Date Status metFORMIN HCl 500 MG 2 tabs in the a.m. and 1 tab in p.m. orally twice daily Active FreeStyle Lisa 3 Plus Sensor - DIRECTED CHANGE EVERY 14 DAYS for 28 Active FreeStyle Lisa 3 [place] - as directed 03/29/2024 Active MiraLax 17 GM/SCOOP 1 scoop mixed with 8 ounces of fluid Orally qod Active Atorvastatin Calcium 80 MG 1 tablet Oral ly Once a day for 90 day(s) Active Lisinopril 40 MG 1 tablet Orally Once a day for 90 days Active SOCIAL HISTORY Tobacco Use: Social History Observation Description Date Details (start date - stop date) Never Smoker NA - NA Sex Assigned At : Social History Observation Description Sex Assigned At Unknown Smoking Question Answer Notes Are you a: never smoker PROBLEMS Problem Type ICD Code Onset Dates Problem Status W/U Status Risk SNOMED Code Notes Problem Essential (primary) hypertension (I10) Active confirmed 69346084 Problem Mixed hyperlipidemia (E78.2) Active confirmed 749671151 Problem Kidney stones (N20.0) Active confirmed 76831875 Problem Hyperlipidemia, unspecified hyperlipidemia type (E78.5) Active confirmed 55486164 Problem Type 2 diabetes mellitus without complication, without long-term current use of insulin (E11.9) Active confirmed 732207134 Problem Spinal stenosis of lumbar region with neurogenic claudication (M48.062) Active confirmed 26334168 Problem Degeneration of intervertebral disc of lumbar region with discogenic back pain and lower extremity pain (M51.362) Active confirmed 95985069 VITAL SIGNS Blood pressure diastolic 78 mm Hg 11/21/2024 Height 70 in 11/21/2024 Blood pressure systolic 130 mm Hg 11/21/2024 Weight 223.4 lbs 11/21/2024 BMI 32.05 kg/m2 11/21/2024 Encounters Encounter Location Date Provider Diagnosis [address] [address] 03/27/2024 RADHA NGUYEN [address] [address] 03/27/2024 SILVINA ACOSTA [address] [address] 03/29/2024 SILVINA ACOSTA Type 2 diabetes mellitus without complication, without long-term current use of insulin E11.9 ; Hypertension, unspecified type I10 and Degeneration of intervertebral disc of lumbar region with discogenic back pain and lower extremity pain M51.[address] [address] 03/29/2024 RADHA NGUYEN [address] [address] 04/01/2024 RADHA NGUYEN [address] [address] 05/02/2024 RADHA NGUYEN Leg pain, left M79.[address] [address] 06/11/2024 RADHA NGUYEN [facility] [address] [place] [phone] 06/16/2024 RADHA NGUYEN [address] [address] 06/17/2024 RADHA NGUYEN [address] [address] 07/23/2024 RADHA NGUYEN [facility] [address] [place] [address] 08/19/2024 RADHAKEVIN NGUYEN Type 2 diabetes mellitus without complication, without long-term current use of insulin E11.9 ; Essential (primary) hypertension I10 ; Mixed hyperlipidemia E78.2 ; Spinal stenosis of lumbar region with neurogenic claudication M48.062 and Kidney stones N20.0 [facility] [address] [place] [address] 08/21/2024 RADHA NGUYEN [facility] [address] [place] [address] 08/25/2024 RADHA WELLSRILAUREN [facility] [address] [place] [address] 08/27/2024 RADHA WELLSRILAUREN [facility] [address] [place] [address] 08/28/2024 RADHA NGUYEN [facility] [address] [place] [address] 08/28/2024 RADHA WELLSRILAUREN [facility] [address] [place] [phone] 09/11/2024 RADHA WELLSRILAUREN [facility] [address] [place] [phone] 09/22/2024 RADHAKEVIN WELLSRILAUREN [facility] [address] [place] [phone] 09/23/2024 RADHA WELLSRILAUREN [facility] [address] [place] [phone] 09/26/2024 RADHA NGUYEN Type 2 diabetes mellitus without complication, without long-term current use of insulin E11.9 and Essential (primary) hypertension I10 [facility] [address] [place] [address] 11/07/2024 RADHA NGUYEN Essential (primary) hypertension I10 [facility] [address] [place] [address] 11/18/2024 RADHAKEVIN WELLSRILAUREN [facility] [address] [place] [phone] 11/21/2024 RADHA NGUYEN Type 2 diabetes mellitus without complication, without long-term current use of insulin E11.9 ; Essential (primary) hypertension I10 ; Mixed hyperlipidemia E78.2 ; Spinal stenosis of lumbar region with neurogenic claudication M48.062 and Kidney stones N20.0 ASSESSMENTS Encounter Date Diagnosis Assessment Notes Treatment Notes Treatment Clinical Notes Section Notes 08/19/2024 Essential (primary) hypertension (ICD-10 - I10) Blood pressure is a little bit high today. He will begin monitoring at home, bring in his record 08/19/2024 Type 2 diabetes mellitus without complication, without long-term current use of insulin (ICD-10 - E11.9) His blood sugars at home have been better controlled, as seen on his lisa system. He is tolerating Jardiance without difficulty along with metformin. He has lost 15 pounds since starting Jardiance. Check labs today. See diabetes flow chart. 03/29/2024 Type 2 diabetes mellitus without complication, without long-term current use of insulin (ICD-10 - E11.9) Labs ordered. Will start Jardiance 10 mg daily in addition to the metformin which she will continue 2 tablets twice a day. Given prescription for [employer] lisa to monitor and track of blood sugars. Discussed diet and exercise as possible. Follow-up with Dr. Nguyen in 4 to 6 weeks for recheck on diabetes, medication and pain. 03/29/2024 Hypertension, unspecified type (ICD-10 - I10) Labs ordered. Blood pressure under good control today. Continue on lisinopril 20 mg daily. Follow-up with Dr. Nguyen in 4 to 6 weeks. 05/02/2024 Leg pain, left (ICD-10 - M79.605) pain in left hip to knee inderjit on walkng. He lost a great deal of weight (was 363 lbs in 1999). Pain is worse with walking, better with resting. Aleve helps some. Gabapentin up to 1800 mg/day did not provide any benefit, so he tapered it off. Given his pattern of pain, known severe osteoarthritis or avascular necrosis (or so he was told) of the right knee, family history of arthritis, symptoms are highly suggestive of osteoarthritis of his hip. Will check x-ray. Given prescription for meloxicam to replace Aleve. His renal function is normal. Discussed potential for gastritis, renal effects. I will get back to him with results of his x-ray. 11/21/2024 Essential (primary) hypertension (ICD-10 - I10) BP at home is 120's/70's consistently on lisinopril to 40 mg daily. He is tolerating it well. He does have a persistent cough. I offered a change to ARB, but the cough is a minor nusance. 11/21/2024 Type 2 diabetes mellitus without complication, without long-term current use of insulin (ICD-10 - E11.9) He will continue to be followed by Kely MARSHALL, so I wont get involved with managing his DM. His home BS are very good. 09/26/2024 Essential (primary) hypertension (ICD-10 - I10) His blood pressure record at home is excellent since we increase his lisinopril to 40 mg daily. He is tolerating it well and a new prescription was sent for him 09/26/2024 Type 2 diabetes mellitus without complication, without long-term current use of insulin (ICD-10 - E11.9) He is here in followup from a visit at [facility] for several episodes of hypoglycemia. Hosp records [...] has now seen a nurse practitioner at [facility] and requests to be followed there, which is fine. His metformin dose was decreased and Jardiance discontinued. This makes a lot of sense, but I will be deferring treatment to his new editorial writer. He will f/u with [facility]. He is off Jardiance, on metformen 500mg BID only. No further hypoglycemia. He will continue to be followed by Kely MARSHALL, so I wont get involved with managing his DM. 08/19/2024 Mixed hyperlipidemia (ICD-10 - E78.2) No myalgias from atorvastatin. Check fasting lipids today. 03/29/2024 Degeneration of intervertebral disc of lumbar region with discogenic back pain and lower extremity pain (ICD-10 - M51.362) Follow-up with [facility]. Discussed possibility of trying Cymbalta but patient declined at this time. He will follow-up with [facility] and consider possible injections based on his updated A1c. Advised to add ice as well as heat to his back. Gentle stretching and range of motion. Some rest. Recheck pain in [address] to [address] Nguyen. 11/21/2024 Mixed hyperlipidemia (ICD-10 - E78.2) No myalgias from atorvastatin. LDL was 36. He needs aggressive lipid control due to an elevated LP(a) and family history of CAD. 11/07/2024 Essential (primary) hypertension (ICD-10 - I10) 08/19/2024 Spinal stenosis of lumbar region with neurogenic claudication (ICD-10 - M48.062) He describes having spinal stenosis of the lumbar spine as evidenced by an MRI last year through [facility]. He has severe pain in limitation of walking due to neurologic claudication and plans to seek a steroid injection at [facility]. Next OV there 08/30/24. Meloxicam did not help. Pain is in lower back radiating to left hip, knee. He needs walking sticks. 11/21/2024 Spinal stenosis of lumbar region with neurogenic claudication (ICD-10 - M48.062) He describes having spinal stenosis of the lumbar spine as evidenced by an MRI last year through [facility]. He has severe pain in limitation of walking due to neurologic claudication. Dr Sheldon's note reviewed. Going by his MRI in February 2024, there was no convincing nerve root compression but there was protruding disc in the L3-[address] Young felt, in second opinion, that this would be amenable to surgery and a third opinion at [facility] is pending. Lumbar decompression sounds to make a lot of sense, particularly since his activity is markedly restricted. 08/19/2024 Kidney stones (ICD-10 - N20.0) He has recurrent calcium kidney stones, followed at [facility] 11/21/2024 Kidney stones (ICD-10 - N20.0) He has recurrent calcium kidney stones, followed at [facility]. PSA was 1.5. US 09/25/24. 09/26/2024 Other 30' F2F encount er in review of hospital records, multiple issues, handicap placard form completed. (Again). He had another form from the registry of motor vehicles in this regard. 08/19/2024 Other HC placard form completed 11/21/2024 Other I encouraged another covid booster, as it has been > 1 year, he has no h/o infection, and is protecting a compromised . 05/02/2024 Other review of recor ds, history, PMH 35' encounter PLAN OF TREATMENT Pending Test Test Name Order Date XR Hip Aspiration Left 05/02/2024 Next Appt Details Provider Name:RADHA NGUYEN, 04/28/2025 10:00:00 AM, [address] [place], [address], Insurance Providers Payer Name Payer Address Payer Phone Subscriber Number Group Number Insured Name Patient Relationship to Insured Coverage Start Date Coverage End Date [employer] [place] [employer] [address] [place] [phone] [id number] ANA GAYTAN Self - patient is the insured [address] [employer] [address] [place] [phone] ANA GAYTAN Self - patient is the insured 1 MEDICAL (GENERAL) HISTORY Medical History History ICD Code diabetes high blood pressure kidney stones Surgical History Surgery Date(Month/Year) hemorrhoidectomy 1980 tonsillectomy 1977 appendectomy 1967 Hospitalization History Reason Date(Month/Year) [facility] Hypoglycemia 08/26/24
--- OUTSIDE RECORDS SUMMARY | 2025-01-08 11:58 | XMS_ITS | Encounter Summary ---
Author Organization [facility] Address [address] [facility] [address] [place] [address] Phone Care Team Providers Care Mower Operator Name Role Phone Polo Bergman MD Primary Care Provider [phone] Encounter Details Date Type Department Care Team (Late st Contact Info) Description 11/25/2024 Procedure Pass [facility], Ct Scan - [address] [id number] Social History Tobacco Use Types Packs/Day Years [...] Info) Description 01/29/2025 11:30 AM EDT Evaluation [facility] [address] [place] [address] Kashif Sullivan Abd, MD [address] [place] [address] documented as of this encounter Visit Diagnoses Not on filedocumented in this encounter Care Teams Mower Operator Relationship Specialty Start Date End Date Polo Bergman MD [address] [place] [id number] PCP - General Internal Medicine 10/10/24 documented as of this encounter Additional Source Comments The information contained in this document represents components of the legal health record. It is not the complete legal health record.[facility]
--- OUTSIDE RECORDS SUMMARY | 2025-01-08 11:58 | XMS_ITS | Clinical Summary ---
Author Organization [facility] Address [address] [place] [address] Phone Care Team Providers Care Billing Manager Name Role Phone Polo Bergman MD Primary Care Provider [phone] [phone] Allergies No known active allergies Medications metFORMIN (GLUCOPHAGE) 1000 MG tablet Take 1,000 mg by mouth 2 (two) times a day with meals. Active lisinopril (PRINIVIL,ZESTRI L) 20 MG tablet Take 20 mg by mouth daily. Active pravastatin (PRAVACHOL) 20 MG tablet Take 20 mg by mouth daily. Active aspirin 81 MG EC tablet Take 81 mg by mouth daily. Active Active Problems No known active problems Encounters Date Type Department Care Team Description 01/03/2025 Orders Only [facility] NEUROSURGERY VIRTUAL DEPARTMENT [address] [place] [phone] Minesh Carl MD Lumbar back pain with radiculopathy affecting left lower extremity (Primary Dx) 12/25/2024 Telephone [facility] NEUROSURGERY VIRTUAL DEPARTMENT [address] [place] [phone] Minesh Carl MD 12/11/2024 12:09 PM EDT - 12/11/2024 11:59 PM EDT Hospital Encounter [facility] [address] [address] Minesh Carl MD Discharge Disposition: Home or Self Care 11/25/2024 3:09 PM EDT - 11/25/2024 11:59 PM EDT Hospital Encounter [facility] Imaging - Diagnostic Radiology, [address] [place] [address] Minesh Carl MD Discharge Disposition: Home or Self Care 11/25/2024 1:00 PM EDT Office Visit [facility] Neurosurgery at [facility] [address], [address] [place] [address] Minesh Carl MD Spondylolisthesis of lumbosacral region (Primary Dx) 11/25/2024 Procedure Pass [facility], [facility] [address] [address] 10/24/2024 Telephone [facility] Neurosurgery [address], [address], [address] [place] [address] Rachel Navas RN 10/17/2024 Telephone [facility] Neurosurgery [address], [address]th [address], [address] [place] [address] Rachel Navas, CULLEN 10/08/2024 Ancillary Orders [facility] [address] [place] [address] Unknown, Loy, from Last 3 Months Family History Medical History Relation Comments No Known Problems Brother No Known Problems Father No Known Problems Maternal Aunt No Known Problems Maternal Grandfather No Known Problems Maternal Grandmother No Known Problems Maternal Uncle No Known Problems Mother No Known Problems Paternal Aunt No Known Problems Paternal Grandfather No Known Problems Paternal Grandmother No Known Problems Paternal Uncle No Known Problems Sister Cancer Unspecified Diabetes Unspecified Heart disease Unspecified Infl. arthritis Unspecified Clotting disorder Neg Hx Collagen disease Neg Hx Depression Neg Hx Dislocations Neg Hx Gout Neg Hx Osteoporosis Neg Hx Scoliosis Neg Hx Relation Status Comments Brother Father Maternal Aunt Maternal Grandfather Maternal Grandmother Maternal Uncle Mother Paternal Aunt Paternal Grandfather Paternal Grandmother Paternal Uncle Sister Unspecified Social History Tobacco Use Types Packs/Day Years [...] Orientation Straight 01/15/2020 2: 37 PM EDT Last Filed Vital Signs Vital Sign Reading Time Taken Comments Blood Pressure 139/92 08/30/2017 1:59 PM EDT Pulse 84 08/30/2017 1:59 PM EDT Temperature - - Respiratory Rate - - Oxygen Saturation - - Inhaled Oxygen Concentration - - Weight 117.5 kg (259 lb) 08/30/2017 1:59 PM EDT Height 180.3 cm (5' 11 ) 08/30/2017 1:59 PM EDT Body Mass Index 36.12 08/30/2017 1:59 PM EDT Plan of Treatment Upcoming Encounters Date Type Department Care Team (Late st Contact Info) Description 01/29/2025 11:30 AM EDT Evaluation [facility] [address] [place] [address] Kashif Sullivan Abd, MD [address] [place] [address] Health Maintenance Due Date Last Done Comments Adult Td,Tdap Booster 1955 CREATININE LEVEL 1956 LIPID PANEL 1956 POTASSIUM LEVEL 1956 DEPRESSION SCREENING 1968 HEPATITIS C SCREENING 1974 COLOGUARD 2001 COLONOSCOPY 2001 COLORECTAL CANCER SCREENING 2001 FIT TEST 2001 FOBT 2001 SIGMOIDOSCOPY 2001 VIRTUAL COLONOSCOPY 2001 PNEUMOCOCCAL VACCINES (50+ years) (2 of 2 - PCV) 02/25/2021 02/26/2020 COVID-19 VACCINE (3 - season) 2024 08/05/2020, 07/08/2020 INFLUENZA VACCINE (#1) 2024 , 03/25/2019, 04/03/2018, Additional history exists RSV VACCINE (1 - 1-dose 75+ series) 2031 SMOKING STATUS SCREENING (Once After 26 Yrs) Completed 08/30/2017 ZOSTER VACCINES Completed 02/26/2020, 01/24/2020 HEPATITIS A VACCINES Aged Out No long er eligible based on patient's age to complete this topic HIB VACCINES Aged Out No longer eligi ble based on patient's age to complete this topic MENINGOCOCCAL VACCINES (ACWY) Aged Out No longer eligible based on patient's age to complete this topic MENINGOCOCCAL VACCINES (B) Aged Out N o longer eligible based on patient's age to complete this topic Medical Devices Not on file Procedures Procedure Name Priority Date/Time Associated Diagnosis Comments CT LUMBAR SPINE WITHOUT CONTRAST Routine 12/11/2024 12:23 PM EDT Spondylolisthesis of lumbosacral region XR HIPS 2+ VW EA BILAT PLUS PELVIS Routine 11/25/2024 4:19 PM EDT Spondylolisthesis of lumbosacral region XR LUMBOSACRAL SPINE 4 OR MORE VIEWS Routine 11/25/2024 4:19 PM EDT Spondylolisthesis of lumbosacral region XR SCOLIOSIS STUDY SUPINE AND ERECT 2 - 3 VIEWS Routine 11/25/2024 4:19 PM EDT Spondylolisthesis of lumbosacral region from Last 3 Months Results * CT LUMBAR SPINE WITHOUT CONTRAST (12/11/2024 12:23 PM EDT) Anatomical Region Laterality Modality L-spine Computed Tomogra phy 12/13/2024 12:1 3 PM EDT Impressions 12/13/2024 12:18 PM EDT 1. Mjtn-bx-cjmozqtm scoliosis of the lumbar spine with convexity [...] clinician's provided indication for this examination in [facility]: * Low back pain, > 6 wks; Sagittal balance, tends to festinate leaning forward. TECHNIQUE: Multidetector-row CT of the lumbar spine was performed without intravenous contrast using tailored dose modulation techniques. Images were reconstructed in the axial, coronal, and sagittal planes. COMPARISON: XR LUMBOSACRAL SPINE 4 OR MORE VIEWS ; MRI SPINE MUSCULOSKELETAL FOCUS OUTSIDE (NO INTERPRETATION) FINDINGS: LUMBAR SPINE: Alignment and Vertebrae: Eylt-kg-yurhuaun scoliosis of the lumbar spine with convexity [...] clinician's provided indication for this examination in [facility]: *Low back pain, > 6 wks; Sagittal balance, tends to festinate leaningforward. TECHNIQUE: Multidetector-row CT of the lumbar spine was performed withoutintravenous contrast using tailored dose modulation techniques. Imageswere reconstructed in the axial, coronal, and sagittal planes. COMPARISON: XR LUMBOSACRAL SPINE 4 OR MORE VIEWS ; MRI SPINEMUSCULOSKELETAL FOCUS OUTSIDE (NO INTERPRETATION) FINDINGS: LUMBAR SPINE: Alignment and Vertebrae: Ynbg-kw-jgtcmfhw scoliosis of the lumbar spinewith convexity towards [...] to severebony LEFT foraminal stenosis. IMPRESSION: 1. Iwux-ji-idhhqjum scoliosis of the lumbar spine with convexity towardsLEFT centered at L1-L2, with multilevel degenerative changes, mostprominent at L2-L3, L3-L4 and L4-L5 with moderate to severe bony foraminalstenosis, better evaluated on MRI from February 17, 2024. MRI lumbar spinecould be obtained for improved evaluation. 2. Multiple bilateral nonobstructive renal stones measuring up to 4 mm. us Minesh Carl MD IMG CT XSPECIALTY ORDERABLES Final Result * XR HIPS 2+ VW EA BILAT PLUS PELVIS (11/25/2024 4:19 PM EDT) Anatomical Region Laterality Modality Hip, Pelvis Computed Radiogr aphy 11/25/2024 5:13 PM EDT Impressions 11/25/2024 5:17 PM EDT Lumbar scoliosis with multilevel degenerative changes, and grade 1 anterolisthesis at L4-L5 with mild dynamic instability. Mild bilateral hip osteoarthritis. Narrative 11/25/2024 5:17 PM EDT XR HIPS 2+ VW EA BILAT PLUS PELVIS, XR LUMBOSACRAL SPINE 4 OR MORE VIEWS, XR SCOLIOSIS STUDY 2 - 3 VIEWS Referring clinician's provided indication for this examination in Epic: Osteoarthritis; Sagittal balance, tends to festinate leaning forward. COMPARISON: MRI SPINE MUSCULOSKELETAL FOCUS OUTSIDE (NO INTERPRETATION) FINDINGS: Spine: Electronically stitched images of the entire spine show levoconvex curvature centered at L1-L2 with mild compensatory dextroconvex curvature of the lower lumbar spine. Mild rightward coronal balance. Exaggerated thoracic kyphosis. Positive sagittal balance. Grade 1 anterolisthesis at L4-L5. No definite compression fracture, noting that the cervicothoracic junction is obscured by overlapping shoulders on the lateral view. Multilevel degenerative changes. Additional dedicated views of the lumbar spine show mild improvement of L4-L5 anterolisthesis on extension, without significant change during flexion. Degenerative disc disease is most advanced from L2-L3 through L4-L5. Degenerative facet arthropathy is most advanced in the lower lumbar spine. Pelvis: No displaced fracture. Intact sacroiliac joints and pubic symphysis. Left Hip: No displaced fracture. Mild degenerative changes. Right Hip: No displaced fracture. Mild degenerative changes. Procedure Note Gio Ewing MD - 11/25/2024 XR HIPS 2+ VW EA BILAT PLUS PELVIS, XR LUMBOSACRAL SPINE 4 OR MORE VIEWS,XR SCOLIOSIS STUDY 2 - 3 VIEWS Referring clinician's provided indication for this examination in Epic:Osteoarthritis; Sagittal balance, tends to festinate leaning forward. COMPARISON: MRI SPINE MUSCULOSKELETAL FOCUS OUTSIDE (NO INTERPRETATION) FINDINGS: Spine: Electronically stitched images of the entire spine show levoconvexcurvature centered at L1-L2 with mild compensatory dextroconvex curvatureof the lower lumbar spine. Mild rightward coronal balance. Exaggeratedthoracic kyphosis. Positive sagittal balance. Grade 1 anterolisthesis atL4-L5. No definite compression fracture, noting that the cervicothoracicjunction is obscured by overlapping shoulders on the lateral view.Multilevel degenerative changes. Additional dedicated views of the lumbar spine show mild improvement ofL4-L5 anterolisthesis on extension, without significant change duringflexion. Degenerative disc disease is most advanced from L2-L3 throughL4-L5. Degenerative facet arthropathy is most advanced in the lower lumbarspine. Pelvis: No displaced fracture. Intact sacroiliac joints and pubicsymphysis. Left Hip: No displaced fracture. Mild degenerative changes. Right Hip: No displaced fracture. Mild degenerative changes. IMPRESSION: Lumbar scoliosis with multilevel degenerative changes, and grade 1anterolisthesis at L4-L5 with mild dynamic instability. Mild bilateral hip osteoarthritis. us Minesh Carl MD IMG XR PELVIS Final Result * XR LUMBOSACRAL SPINE 4 OR MORE VIEWS (11/25/2024 4:19 PM EDT) Anatomical Region Laterality Modality L-spine Computed Radiogr aphy 11/25/2024 5:13 PM EDT Impressions 11/25/2024 5:17 PM EDT Lumbar scoliosis with multilevel degenerative changes, and grade 1 anterolisthesis at L4-L5 with mild dynamic instability. Mild bilateral hip osteoarthritis. Narrative 11/25/2024 5:17 PM EDT XR HIPS 2+ VW EA BILAT PLUS PELVIS, XR LUMBOSACRAL SPINE 4 OR MORE VIEWS, XR SCOLIOSIS STUDY 2 - 3 VIEWS Referring clinician's provided indication for this examination in Epic: Osteoarthritis; Sagittal balance, tends to festinate leaning forward. COMPARISON: MRI SPINE MUSCULOSKELETAL FOCUS OUTSIDE (NO INTERPRETATION) FINDINGS: Spine: Electronically stitched images of the entire spine show levoconvex curvature centered at L1-L2 with mild compensatory dextroconvex curvature of the lower lumbar spine. Mild rightward coronal balance. Exaggerated thoracic kyphosis. Positive sagittal balance. Grade 1 anterolisthesis at L4-L5. No definite compression fracture, noting that the cervicothoracic junction is obscured by overlapping shoulders on the lateral view. Multilevel degenerative changes. Additional dedicated views of the lumbar spine show mild improvement of L4-L5 anterolisthesis on extension, without significant change during flexion. Degenerative disc disease is most advanced from L2-L3 through L4-L5. Degenerative facet arthropathy is most advanced in the lower lumbar spine. Pelvis: No displaced fracture. Intact sacroiliac joints and pubic symphysis. Left Hip: No displaced fracture. Mild degenerative changes. Right Hip: No displaced fracture. Mild degenerative changes. Procedure Note Gio Ewing MD - 11/25/2024 XR HIPS 2+ VW EA BILAT PLUS PELVIS, XR LUMBOSACRAL SPINE 4 OR MORE VIEWS,XR SCOLIOSIS STUDY 2 - 3 VIEWS Referring clinician's provided indication for this examination in [facility]:Osteoarthritis; Sagittal balance, tends to festinate leaning forward. COMPARISON: MRI SPINE MUSCULOSKELETAL FOCUS OUTSIDE (NO INTERPRETATION) FINDINGS: Spine: Electronically stitched images of the entire spine show levoconvexcurvature centered at L1-L2 with mild compensatory dextroconvex curvatureof the lower lumbar spine. Mild rightward coronal balance. Exaggeratedthoracic kyphosis. Positive sagittal balance. Grade 1 anterolisthesis atL4-L5. No definite compression fracture, noting that the cervicothoracicjunction is obscured by overlapping shoulders on the lateral view.Multilevel degenerative changes. Additional dedicated views of the lumbar spine show mild improvement ofL4-L5 anterolisthesis on extension, without significant change duringflexion. Degenerative disc disease is most advanced from L2-L3 throughL4-L5. Degenerative facet arthropathy is most advanced in the lower lumbarspine. Pelvis: No displaced fracture. Intact sacroiliac joints and pubicsymphysis. Left Hip: No displaced fracture. Mild degenerative changes. Right Hip: No displaced fracture. Mild degenerative changes. IMPRESSION: Lumbar scoliosis with multilevel degenerative changes, and grade 1anterolisthesis at L4-L5 with mild dynamic instability. Mild bilateral hip osteoarthritis. Minesh Carl MD IMG XR SPINE Final Result * XR SCOLIOSIS STUDY SUPINE AND ERECT 2 - 3 VIEWS (11/25/2024 4:19 PM EDT) Anatomical Region Laterality Modality C-spine, T-spine, L-spine Comput ed Radiography 11/25/2024 5:13 PM EDT Impressions 11/25/2024 5:17 PM EDT Lumbar scoliosis with multilevel degenerative changes, and grade 1 anterolisthesis at L4-L5 with mild dynamic instability. Mild bilateral hip osteoarthritis. Narrative 11/25/2024 5:17 PM EDT XR HIPS 2+ VW EA BILAT PLUS PELVIS, XR LUMBOSACRAL SPINE 4 OR MORE VIEWS, XR SCOLIOSIS STUDY 2 - 3 VIEWS Referring clinician's provided indication for this examination in [facility]: Osteoarthritis; Sagittal balance, tends to festinate leaning forward. COMPARISON: MRI SPINE MUSCULOSKELETAL FOCUS OUTSIDE (NO INTERPRETATION) FINDINGS: Spine: Electronically stitched images of the entire spine show levoconvex curvature centered at L1-L2 with mild compensatory dextroconvex curvature of the lower lumbar spine. Mild rightward coronal balance. Exaggerated thoracic kyphosis. Positive sagittal balance. Grade 1 anterolisthesis at L4-L5. No definite compression fracture, noting that the cervicothoracic junction is obscured by overlapping shoulders on the lateral view. Multilevel degenerative changes. Additional dedicated views of the lumbar spine show mild improvement of L4-L5 anterolisthesis on extension, without significant change during flexion. Degenerative disc disease is most advanced from L2-L3 through L4-L5. Degenerative facet arthropathy is most advanced in the lower lumbar spine. Pelvis: No displaced fracture. Intact sacroiliac joints and pubic symphysis. Left Hip: No displaced fracture. Mild degenerative changes. Right Hip: No displaced fracture. Mild degenerative changes. Procedure Note Gio Ewing MD - 11/25/2024 XR HIPS 2+ VW EA BILAT PLUS PELVIS, XR LUMBOSACRAL SPINE 4 OR MORE VIEWS,XR SCOLIOSIS STUDY 2 - 3 VIEWS Referring clinician's provided indication for this examination in Epic:Osteoarthritis; Sagittal balance, tends to festinate leaning forward. COMPARISON: MRI SPINE MUSCULOSKELETAL FOCUS OUTSIDE (NO INTERPRETATION) FINDINGS: Spine: Electronically stitched images of the entire spine show levoconvexcurvature centered at L1-L2 with mild compensatory dextroconvex curvatureof the lower lumbar spine. Mild rightward coronal balance. Exaggeratedthoracic kyphosis. Positive sagittal balance. Grade 1 anterolisthesis atL4-L5. No definite compression fracture, noting that the cervicothoracicjunction is obscured by overlapping shoulders on the lateral view.Multilevel degenerative changes. Additional dedicated views of the lumbar spine show mild improvement ofL4-L5 anterolisthesis on extension, without significant change duringflexion. Degenerative disc disease is most advanced from L2-L3 throughL4-L5. Degenerative facet arthropathy is most advanced in the lower lumbarspine. Pelvis: No displaced fracture. Intact sacroiliac joints and pubicsymphysis. Left Hip: No displaced fracture. Mild degenerative changes. Right Hip: No displaced fracture. Mild degenerative changes. IMPRESSION: Lumbar scoliosis with multilevel degenerative changes, and grade 1anterolisthesis at L4-L5 with mild dynamic instability. Mild bilateral hip osteoarthritis. Minesh Carl MD IMG XR SPINE Final Result from Last [address] [place] [place] [address] MEDICARE PPO BLUE REPLACEMENT MEDICARE PPO BLUE REPLAC[place] BLUE REPLACEMENT Care Teams Billing Manager Relationship Specialty Start Date End Date Polo Bergman MD [address] [place] [address] PCP - General Internal Medicine 10/10/24 Additional Source Comments The information contained in this document represents components of the legal health record. It is not the complete legal health record.[facility]
--- OUTSIDE RECORDS SUMMARY | 2025-01-08 11:58 | XMS_ITS | Clinical Summary ---
Author Organization [facility] Address [address] [place], [place] [id number] Care Team Providers Care Gas Plant Dispatcher Name Role Phone Johnson ELAM MD, Balwinder Martin Primary Care Provider [phone]- [phone] Allergies No known active allergies Medications Medication [...] Group Subscriber ID Effective Dates Phone Address [facility] [id number] [address] [place] [phone] O Care Teams Gas Plant Dispatcher Relationship Specialty Start Date End Date Balwinder Ornelas II, MD [address] [place] [address] PCP - General Internal Medicine 09/12/17
--- OUTSIDE RECORDS SUMMARY | 2025-01-08 11:59 | XMS_ITS | Patient Health Record ---
Author Organization [facility] Bridget Moraley Address [address] [place] [address] Care Team Providers Care Account Support Specialist Name Role Phone Balwinder Ornelas MD Primary Care Provider Unavailab Gregory Mary Unavailable [phone] Reason For Referral No Information Medications Medication [...] primary osteoarthritis of the ankle and/or foot (365784303) Primary osteoarthritis, right ankle and foot (M19.071) Active confirmed Problem Polyneuropathy due t o type 2 diabetes mellitus (393210464) Type 2 diabetes mellitus with diabetic polyneuropathy (E11.42) Active confirmed Problem Swelling of first metatarsophalangeal joint of hallux (155555379) Bunion, right foot (M21.611) Active confirmed Plan Of Treatment No Information Insurance Providers Payer Name Payer Address Payer Phone Subscriber Number Group Number Insured Name Patient Relationship to Insured Coverage Start Date Coverage End Date [facility] [address] [place] [address] [id number] Darrick Gil Self - patient is the insured Medical (General) History Medical History History ICD Code Back,Hip,and Knee pain type II diabetes Hypertension Chicken pox Degenerative disc disease Avascular necrosis-right knee Benign prostatic hyperplasia (BPH) Kidney stones Prostate conditions Cholesterol Surgical History Surgery Date(Month/Year) appendectomy 1966 tonsillectomy 1978 hemorrhoidectomy 1981
[2025-01-08 15:13] LABS: Estimated Glomerular Filt Rate > 60
== END 2025-01-08 11:03 | disposition home or self-care (01) ==
LOC: HO.WFDLDS 11:02
PROVIDERS: Visit Provider Physician Assistant Medical
DX: E11.9 Type 2 diabetes mellitus without complications (principal)
CPT/HCPCS: 36415; 82565

== ENCOUNTER 2025-03-11 09:47 | Outpatient (AMB) | payer MEDICARE, SELFPAY ==
--- OUTSIDE RECORDS SUMMARY | 2024-09-11 04:01 | XMS_ITS ---
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
--- OUTSIDE RECORDS SUMMARY | 2024-09-22 18:49 | XMS_ITS ---
Author Organization [facility] Address [address], [place] [id number] Care Team Providers Care Mineral Wool Insulation Supervisor Name Role Phone RADHA NGUYEN Primary Care Provider REASON FOR VISIT New Referral Request Encounters Encounter Location Date Provider Diagnosis [facility] [address] [place] [address] 09/22/2024 RADHA NGUYEN PLAN OF TREATMENT Next Appt Details Provider Name:RADHA NGUYEN, 04/28/2025 10:00:00 AM, [address] [place], [address],
--- OUTSIDE RECORDS SUMMARY | 2024-09-26 11:15 | XMS_ITS ---
Author Organization [facility] Address [address] [place], [place] [id number] Care Team Providers Care Direct Marketing Coordinator Name Role Phone PATRICK RADHA Primary Care Provider [phone] ALLERGIES No Known Allergies REASON FOR VISIT f/u Diabetes MEDICATIONS Medication SIG (Take, Route, Frequency, Duration) Notes Start Date End Date Status FreeStyle Lisa 3 Plus Sensor - DIRECTED CHANGE EVERY 14 DAYS for 28 Active metFORMIN HCl 500 MG 1 tab orally twice daily Active Atorvastatin Calcium 80 MG 1 tablet Oral ly Once a day for 90 day(s) Active MiraLax 17 GM/SCOOP 1 scoop mixed with 8 ounces of fluid Orally qod Active Lisinopril 40 MG 1 tablet Orally Once a day for 90 days Active FreeStyle Lisa 3 [place] - as directed 03/29/2024 Active SOCIAL HISTORY Tobacco Use: Social History Observation Description Date Details (start date - stop date) Never Smoker NA - NA Sex Assigned At : Social History Observation Description Sex Assigned At Unknown Smoking Question Answer Notes Are you a: never smoker VITAL SIGNS Height 70 in 09/26/2024 Weight 224 lbs 09/26/2024 Blood pressure systolic 130 mm Hg 09/27/19 25 Blood pressure diastolic 84 mm Hg 025 BMI 32.14 kg/m2 09/26/2024 Encounters Encounter Location Date Provider Diagnosis [facility] [address] [place] [address] 09/26/2024 RADHA NGUYEN Type 2 diabetes mellitus without complication, without long-term current use of insulin E11.9 and Essential (primary) hypertension I10 ASSESSMENTS Encounter Date Diagnosis Assessment Notes Treatment Notes Treatment Clinical Notes Section Notes 09/26/2024 Type 2 diabetes mellitus without complication, without long-term current use of insulin (ICD-10 - E11.9) He is here in followup from a visit at [facility] for several episodes of hypoglycemia. Hosp records reviewed. He presented for several episodes of symptomatic hypoglycemia. He had mildly elevated creatinine and potassium. After reviewing the records, my feeling is that his diabetes improved due to weight loss, possibly contributed to by Jardiance. Due to improved diabetes, he became hypoglycemic so that Jardiance was discontinued. I do not believe the mild hyperkalemia (5.5) or azotemia are significant problems and may have been related to his poor hydration status in the middle of the night. He has now seen a nurse practitioner at [facility] and requests to be followed there, which is fine. His metformin dose was decreased and Jardiance discontinued. This makes a lot of sense, but I will be deferring treatment to his new software sales executive. He will f/u with [facility]. He is off Jardiance, on metformen 500mg BID only. No further hypoglycemia. He will continue to be followed by Kely MARSHALL, so I wont get involved with managing his DM. 09/26/2024 Essential (primary) hypertension (ICD-10 - I10) His blood pressure record at home is excellent since we increase his lisinopril to 40 mg daily. He is tolerating it well and a new prescription was sent for him 09/26/2024 [facility], multiple issues, handicap placard form completed. (Again). He had another form from the registry of motor vehicles in this regard. PLAN OF TREATMENT Medication Medication Name Sig Start Date Stop Date Notes Lisinopril 40 MG 1 tablet Orally Once a day for 90 days Treatment Notes Assessment Notes Type 2 diabetes mellitus wit hout complication, without long-term current use of insulin He is here in followup from a visit at [facility] for several episodes of hypoglycemia. Hosp records reviewed. He presented for several episodes of symptomatic hypoglycemia. He had mildly elevated creatinine and potassium. After reviewing the records, my feeling is that his diabetes improved due to weight loss, possibly contributed to by Jardiance. Due to improved diabetes, he became hypoglycemic so that Jardiance was discontinued. I do not believe the mild hyperkalemia (5.5) or azotemia are significant problems and may have been related to his poor hydration status in the middle of the night. He has now seen a nurse practitioner at [facility] and requests to be followed there, which is fine. His metformin dose was decreased and Jardiance discontinued. This makes a lot of sense, but I will be deferring treatment to his new software sales executive. He will f/u with [facility]. He is off Jardiance, on metformen 500mg BID only. No further hypoglycemia. He will continue to be followed by [facility], so I wont get involved with managing his DM. Essential (primary) hypertension His blo od pressure record at home is excellent since we increase his lisinopril to 40 mg daily. He is tolerating it well and a new prescription was sent for him Other 30' F2F encounter in review of hospital records, multiple issues, handicap placard form completed. (Again). He had another form from the registry of motor vehicles in this regard. Next Appt Details Follow Up: All set for November, Reason: Provider Name:RADHA NGUYEN, 04/28/2025 10:00:00 AM, [address] [facility], [place], [address],
--- OUTSIDE RECORDS SUMMARY | 2024-11-18 06:06 | XMS_ITS ---
Author Organization [facility] Address [address] [place], [place] [id number] Care Team Providers Care Proof Machine Operator Supervisor Name Role Phone RADHA NGUYEN Primary Care Provider REASON FOR VISIT Update Kiosk Demographics Encounters Encounter Location Date Provider Diagnosis [facility] [address] [place] [address] 11/18/2024 RADHA NGUYEN PLAN OF TREATMENT Next Appt Details Provider Name:RADHA NGUYEN, 04/28/2025 10:00:00 AM, [address] [place], [address],
--- OUTSIDE RECORDS SUMMARY | 2025-02-24 12:19 | XMS_ITS ---
Author Organization [facility] Address [address], [place] [id number] Care Team Providers Care Hurl Shaker Name Role Phone RADHA NGUYEN Primary Care Provider REASON FOR VISIT neck pain/cold symptoms Encounters Encounter Location Date Provider Diagnosis [facility] [address] [place] [address] 02/24/2025 RADHA NGUYEN PLAN OF TREATMENT Next Appt Details Provider Name:RADHA NGUYNE, 04/28/2025 10:00:00 AM, [address] [place], [phone],
--- OUTSIDE RECORDS SUMMARY | 2025-02-26 09:00 | XMS_ITS ---
Author Organization [facility] Address [address] [place], [place] [id number] Care Team Providers Care Fire Apparatus Sprinkler Inspector Name Role Phone RADHA NGUYEN Primary Care Provider ALLERGIES No Known Allergies REASON FOR VISIT L Side Jaw and Neck Numbness MEDICATIONS Medication SIG (Take, Route, Frequency, Duration) Notes Start Date End Date Status Jardiance 10 MG 1 tablet Orally Once a day for 30 day(s) Active FreeStyle Lisa 3 Plus Sensor - DIRECTED CHANGE EVERY 14 DAYS for 28 Active Atorvastatin Calcium 80 MG 1 tablet Oral ly Once a day for 90 day(s) Active Lisinopril 40 MG 1 tablet Orally Once a day for 90 days Active MiraLax 17 GM/SCOOP 1 scoop mixed with 8 ounces of fluid Orally qod Active FreeStyle Lisa 3 [place] - as directed 03/29/2024 Active SOCIAL HISTORY Tobacco Use: Social History Observation Description Date Details (start date - stop date) Never Smoker NA - NA Sex Assigned At : Social History Observation Description Sex Assigned At Unknown Smoking Question Answer Notes Are you a: never smoker VITAL SIGNS Height 70 in 02/26/2025 Weight 223 lbs 02/26/2025 Blood pressure systolic 128 mm Hg 02/27/20 25 Blood pressure diastolic 76 mm Hg 025 BMI 31.99 kg/m2 02/26/2025 Encounters Encounter Location Date Provider Diagnosis [facility] [address] [place] [address] 02/26/2025 RADHA NGUYEN Numbness R20.0 ASSESSMENTS Encounter Date Diagnosis Assessment Notes Treatment Notes Treatment Clinical Notes Section Notes 02/26/2025 Numbness (ICD-10 - R20.0) c/o numbness left neck from lower jaw to about 1 inch above clavicle. Constant, worse in AM after sleeping in his right side. Mild pain with lifting neck, sl tender. No other radiation. [place] [facility] [place] that [place] not help. Recent dental cleaning in November. No active problem. He also has had a persistent, intermittent head cold x 6 weeks. Mild but lasting. Cough (? from lisinopril) is minimal now. Has sore throat, headaches, lightheaded - has had these sx in the past. We reviewed his history of chronic intermittent lightheadedness. He has had 2 MRIs which did not show any specific abnormality and he will stop to have benign positional vertigo at 1 point. So this lightheadedness is not out of the ordinary for him. My original was concerned that this might be a form of cervical radiculopathy, given the fact that he is currently being treated for lumbar radiculopathy. However, the distinctly tender mid cervical adenopathy suggest a low-grade, likely viral infection with lymphadenitis causing his symptomatology. I do not see any specific source for infection in his mouth, lungs, skin. I advised that he continue to monitor his symptoms, continue to remain physically active, well-hydrated and call if anything changes. 02/26/2025 Other 33-minute encou nter including review of multiple presenting symptoms. PLAN OF TREATMENT Treatment Notes Assessment Notes Numbness c/o numbness left neck from lower jaw to about 1 inch above clavicle. Constant, worse in AM after sleeping in his right side. Mild pain with lifting neck, sl tender. No other radiation. He [place] [facility] [place] that did not help. Recent dental cleaning in November. No active problem. He also has had a persistent, intermittent head cold x 6 weeks. Mild but lasting. Cough (? from lisinopril) is minimal now. Has sore throat, headaches, lightheaded - has had these sx in the past. We reviewed his history of chronic intermittent lightheadedness. He has had 2 MRIs which did not show any specific abnormality and he will stop to have benign positional vertigo at 1 point. So this lightheadedness is not out of the ordinary for him. My original was concerned that this might be a form of cervical radiculopathy, given the fact that he is currently being treated for lumbar radiculopathy. However, the distinctly tender mid cervical adenopathy suggest a low-grade, likely viral infection with lymphadenitis causing his symptomatology. I do not see any specific source for infection in his mouth, lungs, skin. I advised that he continue to monitor his symptoms, continue to remain physically active, well-hydrated and call if anything changes. Other 33-minute encounter including review of multiple presenting symptoms. Next Appt Details Provider Name:RADHA NGUYEN, 04/28/2025 10:00:00 AM, [address] [place], [place], [id number], Progress Notes * Examination Category Sub-Category Detail Notes Category Not es General Examination HEENT: EOMI. Neck: Mild tenderness and possibly slightly shoddy left mid cervical lymph nodes, nothing prominent,, no thyromegaly, no carotid bruit, JVP flat Heart: RRR, no murmur, , no rmal S1S2 Lungs: clear to auscultatio n. No cough noted on exam. Abdomen: soft, non tender/non distended, no hepatosplenomegaly, excess abd skin (from >110 lb weight loss) Extremities: normal ROM, no clubb ing , cyanosis, or edema, severe onychomycosis both great toenails General Appearance alert, well built an d nourished, no apparent distress Skin: There is no cut, rika h, abrasion in the skin of his head or scalp. Neuro alert and oriented x 3, gait normal Oral cavity: Dental exam reveals left lower end molar, crowned, missing adjacent to proximal. No tenderness to percussion of any of his teeth, no gingival erythema.
[2025-03-11 09:49] VITALS: BP 114/72; PULSE 70; O2SAT 96; BMI 32.3
--- NOTE | 2025-03-11 09:49 | MHC.OFFVIS ---
Vital Signs 03/11/25 09:49 Height 5 ft 11 in Weight 231 lb 7.766 oz BMI 32.3 BP 114/72 Blood Pressure Location Rt brachial Position Sitting Pulse 70 Pulse Source Pulse Oximeter Pulse Oximetry (%) 96 Oxygen Delivery Method Room Air Intake Visit Reasons: Type II diabetes Intake Note: Patient present today to follow up on Type 2 Diabetes Mellitus. Last Diabetic Eye exam: Last exam was on Jan 2025 Last Podiatry Visit: Has not seen one in about 3-4 years Random Glucose: 112 mg/dl HgA1C: 6.3% Executive Search Consultant Required: No Accompanied by: Self / Same As Patient Allergies No Known Allergies Allergy (Verified 03/11/25 09:54) Medication List - Last Reconciled 03/11/25 by JOANNA Freire atorvastatin 80 mg PO DAILY blood sugar diagnostic (FreeStyle Lite Strips) As directed to check glucose up to 2 times daily. blood-glucose meter (FreeStyle Lite Meter kit) as directed blood-glucose sensor (FreeStyle Lisa 3 Plus Sensor device) As directed to monitor blood glucose continuously. Change sensor every 15 days. empagliflozin (Jardiance) 10 mg PO QAM glucose (Dex4 Glucose Quick Dissolve) 16 grams (4 x 4 gram) PO Q15M PRN lancets (FreeStyle Lancets) Use to monitor blood glucose twice daily. lisinopril 40 mg PO DAILY HPI Comments Details: This is a 69-year-old male with a past medical history of hypertension, hyperlipidemia nephrolithiasis, degenerative disc disease of the lumbar spine and type 2 diabetes presenting for diabetic management. He was diagnosed with prediabetes 15 years ago which progress to type 2 diabetes. Highest a1c 8.3% December 2023. CGM 96% G NV 6.2% Average glucose 119 Glucose variability 9.4% Very high 0% High 0% Target range 100% Hypoglycemia 0% My interpretation is the patient has excellent glycemic control throughout 24 hours. Hemoglobin a1c 6.3% today. Current medications: Jardiance 10 mg daily. Previous medication: Metformin discontinued. No side effects but was no longer needed. He sees the dietitian. He is following a low carbohydrate, low sugar diet. He does not drink. He does not smoke. He has not been able to walk or exercise due to his back issues. He is seeing Neurosurgery at [facility]. He did have a back injection recently and his blood sugar increased to 279 that evening. His blood sugars were higher over the next 2 weeks but nothing over 190. Hypoglycemia symptoms: None. Hyperglycemia symptoms: None Eye exam: Up-to-date. No ophthalmic complications. Microvascular complications: neuropathy in his feet Macrovascular complications: None Hypertension is treated with lisinopril 40 mg daily. Hyperlipidemia is treated with atorvastatin 80 mg daily. He does see Podiatry, and he will schedule a follow up appointment. ROS: Constitutional: No unexplained weight loss, fever, chills, fatigue or night sweats. Eyes: No vision changes Respiratory: No shortness of breath Cardiovascular: No chest pain Neurologic: No dizziness, syncope, tremors, seizures. Intermittent tingling and burning pain in his toes. No numbness. No weakness. Endocrine: No cold or heat intolerance. No polyuria or polydipsia. Physical exam: Constitutional: Alert, in no distress. Neck: Supple, Full range of motion. No lymphadenopathy. No palpable thyroid masses. Respiratory: Clear to auscultation. Cardiovascular: S1 S2 regular. No murmurs. Right foot: Warm and well perfused. No clubbing, cyanosis or edema. Intact DP pulse. Decreased vibratory sensation. Decreased sensation to monofilament. No open wounds. Callus on the plantar aspect Left foot: Warm and well perfused. No clubbing, cyanosis or edema. Intact DP pulse. Decreased vibratory sensation. Decreased sensation to monofilament. No open wounds. Callus on the plantar aspect [facility] Medical History (Updated 12/03/24 @ 11:05 by JOANNA Freire) Essential hypertension Hypercholesteremia Controlled type 2 diabetes with neuropathy Surgical History Hx of hemorrhoidectomy Hx of tonsillectomy History of appendectomy Family History Father Family history of diabetes mellitus Mother Family history of diabetes mellitus Social History Alcohol intake: current Alcohol intake frequency: does not drink Patient Tobacco Use Status: Never used Tobacco Physical Exam Vital Signs: Last Vital Signs Pulse 70 03/11/25 09:49 BP 114/72 03/11/25 09:49 Pulse Ox 96 03/11/25 09:49 Oxygen Delivery Method Room Air 03/11/25 09:49 BMI result Body Mass Index 32.3 Office Procedures Glucose Monitoring Details Details: See HPI 09237 - Glucose monitoring, continuous-physician I&R Procedure code (CPT) selection complete Results AMB Hemoglobin A1c AMB Hemoglobin A1c 6.3 % Last Edit by SUSANNE Quintero on 03/11/25 10:06 Results Reviewed Results Reviewed: Laboratory Last Values Glucose (Clinic) 112 mg/dL (60-115) 03/11/25 09:57 Hgb A1c (Clinic) 6.3 % (4.0-6.0) H 03/11/25 10:00 External lab report 08/21/2024: Urine creatinine 76.8 Urine albumin less than 3.0 Albumin/creatinine ratio less than 4 Platelets 247,000 Creatinine 0.88 GFR 94 AST 22 ALT 27 Hemoglobin A1c 6.3% Total cholesterol 100 Triglycerides 86 HDL 47 LDL 36 Vitamin B12 409 Fib 4 value 1.17 09/17/24 Laboratory Tests 01/08/25 11:04 Creatinine 0.86 Estimated GFR > 60 Assessment & Plan Assessment & Plan (1) Controlled type 2 diabetes with neuropathy: Code(s): E11.40 - Type 2 diabetes mellitus with diabetic neuropathy, unspecified Category: Medical Plan: In summary this is a 69-year-old male with controlled type 2 diabetes with neuropathy. Discussed pathophysiology of Type II Diabetes Mellitus with the patient in detail.? I explained the [facility] risks and complications associated with uncontrolled diabetes including nephropathy, neuropathy, peripheral vascular disease, retinopathy, increased risk of heart disease and stroke.? Continue Jardiance 10 mg daily. I urged the patient to check a fingerstick glucose if the CGM alerts him to low blood sugar, and he has no symptoms. If blood sugar is <70 follow instructions for hypoglycemia: If you experience low blood sugar, treat this by eating a chewable fruit candy like skittles or jelly beans (about 8 pieces), 4 ounces (1/2 cup) of fruit juice (not diet), 1 tablespoon of honey or 4 glucose tablets. If your blood sugar is under 50, take double the amount of one of the above. Recheck your blood sugar in 15 minutes. (2) Essential hypertension: Code(s): I10 - Essential (primary) hypertension Category: Medical Plan: Well-controlled. Continue lisinopril for hypertension and renal protection. (3) Hypercholesteremia: Code(s): E78.00 - Pure hypercholesterolemia, unspecified Category: Medical Plan: LDL at goal. Continue atorvastatin. Follows a healthy, low-cholesterol diet. He is a nonsmoker. Plan Follow up in 3 months for type 2 diabetes. Orders: Orders AMB Hemoglobin A1c Today E11.40 - Type 2 diabetes mellitus with diabetic neuropathy, unspecified, Z13.9 - Encounter for screening, unspecified AMB Glucose Monitoring Today E11.9 - Type 2 diabetes mellitus without complications Medications: Refilled empagliflozin (Jardiance) 10 mg PO QAM 90 tabs 1RF Coding Level of Care Code Est Pt Level 4 (12238) Diagnoses Controlled type 2 diabetes with neuropathy E11.40 Essential hypertension I10 Hypercholesteremia E78.00 CPT Codes Details - CPT: 45341 - Glucose monitoring, continuous-physician I&R ([id number])
[2025-03-11 10:00] LABS: Glucose, Whole Blood 112 mg/dL (60-115)
--- OUTSIDE RECORDS SUMMARY | 2025-03-11 11:27 | XMS_ITS | Patient Health Record ---
Author Organization [facility] Bridget Moraley Address [address] [place] [address] Care Team Providers Care Radiator Tester Name Role Phone Balwinder Ornelas MD Primary Care Provider Unavailab Gregory Mary Unavailable [phone] Reason For Referral No Information Medications Medication [...] primary osteoarthritis of the ankle and/or foot ([id number]) Primary osteoarthritis, right ankle and foot (M19.071) Active confirmed Problem Polyneuropathy due t o type 2 diabetes mellitus (606223838) Type 2 diabetes mellitus with diabetic polyneuropathy (E11.42) Active confirmed Problem Swelling of first metatarsophalangeal joint of hallux (863684191) Bunion, right foot (M21.611) Active confirmed Plan Of Treatment No Information Insurance Providers Payer Name Payer Address Payer Phone Subscriber Number Group Number Insured Name Patient Relationship to Insured Coverage Start Date Coverage End Date [facility] [address] [place] [address] [id number] Darrick Gil Self - patient is the insured Medical (General) History Medical History History ICD Code Back,Hip,and Knee pain type II diabetes Hypertension Chicken pox Degenerative disc disease Avascular necrosis-right knee Benign prostatic hyperplasia (BPH) Kidney stones Prostate conditions Cholesterol Surgical History Surgery Date(Month/Year) appendectomy 1966 tonsillectomy 1978 hemorrhoidectomy 1981
--- OUTSIDE RECORDS SUMMARY | 2025-03-11 11:27 | XMS_ITS | Clinical Summary ---
Author Organization [facility] Address [address] [place], [place] [id number] Care Team Providers Care Corporate Analyst Name Role Phone Johnson ELAM MD, Balwinder Martin Primary Care Provider [phone] Allergies No known active allergies Medications Medication [...] Group Subscriber ID Effective Dates Phone Address [facility] [id number] [address] [place] [id number] O Care Teams Corporate Analyst Relationship Specialty Start Date End Date Balwinder Ornelas II, MD [address] [place] [address] PCP - General Internal Medicine 09/12/17
== END 2025-03-11 10:39 | disposition home or self-care (01) ==
LOC: HO.ENCR 09:48
PROVIDERS: PCP Internal Medicine; Visit Provider Physician Assistant Medical
DX: E11.40 Type 2 diabetes mellitus with diabetic neuropathy, unspecified (principal); I10 Essential (primary) hypertension; E78.00 Pure hypercholesterolemia, unspecified; Z13.9 Encounter for screening, unspecified

== ENCOUNTER → 2025-03-11 09:47 | Outpatient (BNVA) | payer MEDICARE, SELFPAY | PROVIDERS: PCP Internal Medicine; Visit Provider Physician Assistant Medical | DX: E11.40 Type 2 diabetes mellitus with diabetic neuropathy, unspecified (principal); I10 Essential (primary) hypertension; E78.00 Pure hypercholesterolemia, unspecified | CPT/HCPCS: 82947; 83036; 99212 ==